=== PATIENT | female | born 2000 | race Asian ===

== ENCOUNTER 2019-01-11 11:26 | Emergency (ER) | payer OTHER, SELFPAY ==
[2019-01-11 11:45] VITALS: BP 123/74; PULSE 80; RESP 12; TEMP 37.3; O2SAT 98
--- NOTE | 2019-01-11 11:46 | ED.ALLEREA ---
HPI - Allergic Reaction General Chief complaint: Allergic Reaction Stated complaint: Severe allergic reaction Time Seen by Provider: 01/11/19 11:39 Source: patient Mode of arrival: ambulatory Limitations: no limitations History of Present Illness HPI narrative: Patient is a 18-year-old female who presents with rash. She states that she ate seafood which she typically does 3 days ago. She has been taking Benadryl, however last night she started having some shortness of breath. She denies any tongue swelling or lip swelling. She is able swallow her own secretions. She is quite itchy. No other symptoms. MD complaint: hives Onset (ago): day(s) (3) Symptoms: rash and itching Severity: mild Treatment prior to arrival: benadryl Related Data Previous Rx's Medication Instructions Recorded prednisone 40 mg PO DAILY #10 tab 01/11/19 Review of Systems Review of Systems GENERAL: Denies chills, fatigue, malaise, fever, sweats, travel HEENT: Denies sinus pain, ear pain, sore throat, difficulty swallowing, neck pain RESPIRATORY: Denies dyspnea, cough, wheezing, hemoptysis, sputum. CARDIOVASCULAR: Denies chest pain, palpitations, orthopnea, edema GASTROINTESTINAL: Denies nausea, vomiting, abdominal pain, diarrhea, constipation, melena. : Denies dysuria, frequency, incontinence, hematuria, urinary retention, flank pain. MUSCULOSKELETAL: Denies weakness, joint pain, or bony pain SKIN: Hives NEUROLOGIC: Denies weakness, dizziness, headache, numbness, change in speech, confusion PSYCHIATRIC: No concerning psychosocial issues. 12 point review of systems is negative except for those stated above and HPI [facility] Medical History Patient denies significant medical history (Acute) Social History Smoking Status: Never smoker Social History Smoking Status: Never smoker Exam Initial Vital Signs Initial Vital Signs: Vital Signs Temperature 99.2 F 01/11/19 11:45 Pulse Rate 80 01/11/19 11:45 Respiratory Rate 12 01/11/19 11:45 Blood Pressure 123/74 01/11/19 11:45 Pulse Oximetry 98 01/11/19 11:45 GENERAL: Well-appearing, well-nourished and in no acute distress. HEENT: Head atraumatic,EOMI, pupils reactive, face symmetric, moist mucous membranes. No tongue swelling or lip swelling no stridor CARDIOVASCULAR: Regular rate and rhythm without murmurs, rubs or gallops. RESPIRATORY: Breath sounds equal bilaterally, no wheezes rales or rhonchi. Speaks in full sentences ABDOMEN: Soft, nontender. Normoactive bowel sounds all 4 quadrants. No guarding or rebound. EXTREMITIES: Normal range of motion, no clubbing or edema. Neurovascularly intact NEUROLOGICAL: Alert and oriented x4.Normal gait and speech. SKIN: Diffuse hives all over body Course Vital Signs - 8 hr 01/11/19 11:45 Temperature 99.2 F Pulse Rate 80 Respiratory Rate 12 Blood Pressure 123/74 Pulse Oximetry 98 Discharge Plan Departure Patient Disposition: Home Clinical Impression: Urticaria Allergic reaction Qualifiers: Encounter type: initial encounter Qualified Code(s): T78.40XA - Allergy, unspecified, initial encounter Discharge Date/Time: 01/11/19 12:03 Interventions: ED Discharge Assessment Last Done: 01/11/19 12:03 Instructions: DI for Hives Activity Restrictions/Additional Instructions: *You have been diagnosed with allergic reaction *What to do: At this time it is unclear what your allergic to. I do recommend allergy testing *Continue to take medications as directed Prednisone 40 mg once a day for 5 *Follow up with your primary care provider in 2-3 days *Return to ER if you should have difficulty breathing, lip swelling, tongue swelling or any new, worsening or concerning symptoms Prescriptions: New prednisone 20 mg tablet 40 mg PO DAILY Qty: 10 RF: 0
== END 2019-01-11 12:03 | disposition home or self-care (01) ==
LOC: ED 12:02
PROVIDERS: Emergency Provider Emergency Medicine
DX: L50.9 Urticaria, unspecified (principal); T78.40XA Allergy, unspecified, initial encounter
CPT/HCPCS: 99282; 99283

== ENCOUNTER 2019-03-17 12:39 | Emergency (ER) | payer OTHER, SELFPAY ==
[2019-03-17 12:40] VITALS: BP 130/78; PULSE 71; RESP 16; TEMP 36.6; O2SAT 100; BMI 24.2
--- NOTE | 2019-03-17 13:03 | DI.RAD.S_ITS ---
PROCEDURE: XR CHEST 2V INDICATIONS: near syncope, dyspnea TECHNIQUE: 2 views of the chest were acquired. COMPARISON: None. FINDINGS: Surgical changes and devices: None. Lungs and pleura: Lungs are clear. No pleural effusions or pneumothorax. Mediastinum: Mediastinal contours are normal. Heart size is normal. Bones and chest wall: No suspicious bony abnormalities. Soft tissues appear unremarkable. IMPRESSION: No acute pulmonary process. Dictated by: Lilliana Garcia M.D. on 03/17/2019 at 13:15 Approved by: Lilliana Garcia M.D. on 03/17/2019 at 13:15
[2019-03-17 13:11] LABS: Add Manual Diff / Slide Review NO; Basophils Absolute Auto 100 /uL (0-100); Basophils Percent Auto 0.6 % (0-2); Eosinophils Absolute Auto 0 /uL (0-450); Eosinophils Percent Auto 0.2 % (2-4); Hematocrit 42.5 % (36-46); Hemoglobin 14.8 g/dL (12.0-16.0); Lymphocytes Absolute Auto 2600 /uL (1100-4500); Lymphocytes Percent Auto 23.1 % (25-40); Mean Corpuscular HGB Conc 34.9 % (30-36); Mean Corpuscular Hemoglobin 30.4 PG (26-34); Mean Corpuscular Volume 87.2 fL (80-100); Monocytes Absolute Auto 600 /uL (0-900); Neutrophils Absolute Auto 8000 /uL (1500-7000); Neutrophils Percent Auto 71.1 % (50-75); Platelet Count 296 X10^3/uL (150-400); Red Blood Cell Count 4.87 X10^6/uL (4.0-5.2); Red Cell Distribution Width 12.9 % (11.6-14.8); White Blood Cell Count 11.2 X10^3/uL (4.5-11.0)
[2019-03-17 13:16] VITALS: BP 104/74; PULSE 58; RESP 11; O2SAT 100
[2019-03-17 13:25] LABS: Alanine Aminotransferase 52 IU/L (9-52); Albumin Globulin Ratio 1.5 (1.0-2.8); Alkaline Phosphatase 59 U/L (38-126); Aspartate Aminotransferase 59 IU/L (14-36); Bilirubin Total 0.3 mg/dL (0.2-1.3); Blood Urea Nitrogen 12 mg/dL (7-17); Calcium 10.2 mg/dL (8.4-10.2); Carbon Dioxide 25 mmol/L (22-32); Chloride 103 mmol/L (98-107); Creatine Kinase 164 U/L (30-135); Estimated Glomerular Filt Rate > 60.0 mL/min (>60); Globulin 3.3 g/dL (1.7-4.1); Glucose 83 mg/dL (70-100); HEMOLYSIS 34 (0-50); Potassium 3.8 mmol/L (3.4-5.1); Sodium 141 mmol/L (137-145); Total Protein 8.3 g/dL (6.3-8.2)
[2019-03-17] MEDS: ONDANSETRON 4 MG/2 ML INJ IV (13:26)
[2019-03-17] MEDS: SODIUM CHLORIDE 0.9% 1,000 ML 1000 ML IV (13:26)
[2019-03-17 13:30] VITALS: BP 121/71; PULSE 63; RESP 17; O2SAT 100
[2019-03-17 13:37] LABS: Troponin I < 0.012 ng/mL (0.01-0.034)
[2019-03-17 13:40] LABS: CKMB % Relative Index 0.5 % (1.5-5.0); Creatine Kinase MB 0.84 ng/mL (<2.37)
[2019-03-17 13:49] VITALS: BP 117/63; PULSE 70; RESP 14; O2SAT 98
[2019-03-17 14:00] VITALS: BP 117/71; PULSE 65; RESP 15; O2SAT 100
[2019-03-17 14:14] LABS: D Dimer < 230 ng/mL (<230)
--- NOTE | 2019-03-17 14:55 | ED.SYNCOPE ---
HPI - Syncope <Dagoberto KinneyMarysolWILLIAN RomanP - Last Filed: 03/17/19 22:15> General Chief Complaint: Syncope Stated Complaint: Syncope Time Seen by Provider: 03/17/19 12:40 Source: EMS Mode of arrival: EMS Limitations: no limitations History of Present Illness HPI narrative: This is 18-year-old female, current vapor, presents to ED with medics with chief complain of near syncopal episode while she was smoking on a smoke deck. Patient reports she was having right-sided abdominal pain and lightheadedness with dyspnea prior to this. Patient denies chest pain. Patient is currently being treated for PID with Flagyl and doxycycline secondary to Chlamydia infection. Patient reports right lower quadrant pain is worse today. Denies fever, nausea or vomiting, urinary symptoms, vaginal bleeding, unusual vaginal discharge. Patient reports chills. Patient denies any history of syncopal episode or cardiac problems the past. LMP on 03/04/19. Related Data Home Medications Medication Instructions Recorded Confirmed doxycycline hyclate 100 mg PO BID 03/17/19 03/17/19 ibuprofen 800 mg PO TID 03/17/19 03/17/19 metronidazole 500 mg PO TID 03/17/19 03/17/19 Allergies Allergy/AdvReac Type Severity Reaction Status Date / Time No Known Drug Allergies Allergy Verified 03/17/19 12:43 Review of Systems <Dagoberto KinneyMarysolWILLIAN [facility] Last Filed: 03/17/19 22:15> Review of Systems Narrative: General: Reports chills. Denies fever, fatigue, malaise, sweats. HEENT: Denies sinus pain, ear pain, sore throat, difficulty swallowing, dizziness. Respiratory: See HPI Cardiovascular: Denies chest pain, palpitations, orthopnea, edema. Gastrointestinal: Reports right lower quadrant pain. Denies nausea, vomiting, diarrhea, constipation, melena. : Denies dysuria, frequency, incontinence, hematuria, urinary retention. Musculoskeletal: Denies weakness, joint pain or bony pain. Skin: Denies rash, skin lesions, or other. Neurologic: Almost fainted this morning. Denies weakness, headache, numbness, change in speech, confusion, seizures, incoordination. Psychiatric: No concerning psychosocial issues. 12-point review of systems is negative except for those stated above. Patient History <Dagoberto JAIME Najrea - Last Filed: 03/17/19 22:15> Medical History (Updated 03/17/19 @ 22:00 by JAIME Guo) Chlamydia infection (Acute) Social History Smoking Status: Current every day smoker tobacco type: vaping Substance Use Type: does not use Exam <JAIME Guo - Last Filed: 03/17/19 22:15> Narrative Exam Narrative: GEN: Alert, oriented x 3, well appearing and nourished, and in no acute distress. Head: Normal cephalic, atraumatic. No scalp or temporal tenderness, palpable mass or rash. EYES: Pupils are equal, round, and reactive to light and accommodation. Extraocular muscles are intact bilaterally. There is no subconjunctival hemorrhage, exudate and sclera non-icteric. ENT: Bilateral auditory canals and tympanic membranes clear. Hearing grossly intact. Nose without bleeding, purulent discharge or deviation. Facial sinuses nontender to palpate. Mucous membrane moist, no mucosal lesion. Throat without erythema, tonsillar hypertrophy or exudate. Uvula in midline, airway patent. Neck: Trachea in midline. No JVD, non-tender without lymphadenopathy. No masses or thyroid megaly. Supple, non-tender and no meningeal signs. CARDIAC: Normal regular rate and rhythm without murmurs, gallops, or rubs. No chest wall tenderness. No peripheral edema, cyanosis or pallor. Capillary refill is less than 2 seconds. RESPIRATORY: Lungs are clear to auscultate bilaterally. No cough, wheezes, rales, or rhonchi. No stridor, respiratory distress, increase work of breathing, or accessary muscle used. ABD: Abdomen soft, nontender and non-distended. No guarding or rebound tenderness to palpate. Bowel sounds are normal in all 4 quadrants. There is no palpable masses or organomegaly. EXT: Full painless ROM of all extremities with no loss of sensation, strength, effusion or edema. SKIN: Warm, dry, normal color for patient. No erythema, lesions or rash over visible areas. BACK: Nontender without deformity or crepitance. No flank tenderness. NEUROLOGICAL: Alert and oriented to place, time and person. Sensation and motor function intact bilaterally. No facial droops, dysphasia. PSYCHIATRIC: Good judgement and reason, without hallucinations, abnormal affect or abnormal behaviors during the examination. Initial Vital Signs Initial Vital Signs: Vital Signs Temperature 97.8 F 03/17/19 12:40 Pulse Rate 71 03/17/19 12:40 Respiratory Rate 16 03/17/19 12:40 Blood Pressure 130/78 03/17/19 12:40 Pulse Oximetry 100 03/17/19 12:40 <Thomas Abrams DO - Last Filed: 03/18/19 07:05> Initial Vital Signs Initial Vital Signs: Vital Signs Temperature 97.8 F 03/17/19 12:40 Pulse Rate 71 03/17/19 12:40 Respiratory Rate 16 03/17/19 12:40 Blood Pressure 130/78 03/17/19 12:40 Pulse Oximetry 100 03/17/19 12:40 Scores <JAIME Guo - Last Filed: 03/17/19 22:15> GCS [place] coma scale eye opening: Spontaneous [place] coma scale verbal response: Orientated [place] coma scale motor response: Obey commands [place] coma scale total score: 15 Course <JAIME Guo - Last Filed: 03/17/19 22:15> Orders Ordered: Discontinued Medications Sodium Chloride (Normal Saline 0.9%) 1,000 mls @ 1,000 mls/hr IV BOLUS ONE Stop: 03/17/19 14:02 Last Infusion: 03/17/19 14:46 Dose: 0 mls/hr Documented by: Admin: 03/17/19 13:26 Dose: 1,000 mls/hr Documented by: ROSHNI Ondansetron HCl (Zofran) 4 mg IV NOW ONE Stop: 03/17/19 13:23 Last Admin: 03/17/19 13:26 Dose: 4 mg Documented by: ROSHNI Reevaluation(s) Reevaluation #1: Improved pain, Denies dizziness with ambulation. Time: 14:15 Vital Signs Vital signs: Vital Signs - 8 hr 03/17/19 14:00 03/17/19 15:03 Pulse Rate 65 64 Respiratory Rate 15 18 Blood Pressure [Left Arm] 117/71 122/70 Pulse Oximetry 100 98 <Thomas Abrams DO - Last Filed: 03/18/19 07:05> Orders Ordered: Discontinued Medications Sodium Chloride (Normal Saline 0.9%) 1,000 mls @ 1,000 mls/hr IV BOLUS ONE Stop: 03/17/19 14:02 Last Infusion: 03/17/19 14:46 Dose: 0 mls/hr Documented by: Admin: 03/17/19 13:26 Dose: 1,000 mls/hr Documented by: ROSHNI Ondansetron HCl (Zofran) 4 mg IV NOW ONE Stop: 03/17/19 13:23 Last Admin: 03/17/19 13:26 Dose: 4 mg Documented by: ROSHNI Vital Signs Vital signs: Vital Signs - 8 hr 03/17/19 14:00 03/17/19 15:03 Pulse Rate 65 64 Respiratory Rate 15 18 Blood Pressure [Left Arm] 117/71 122/70 Pulse Oximetry 100 98 MDM - Syncope <JAIME Guo - Last Filed: 03/17/19 22:15> Differential Diagnosis Differential diagnosis: Likely syncope due to orthostatic hypotension, vasovagal syncope, pulmonary embolism and dehydration Medical Records Attestation: I reviewed the patient's medical records. Lab Data Attestation: I reviewed the patient's lab results. Result diagrams: 03/17/19 13:05 03/17/19 13:05 Labs: Lab Results 03/17/19 03/17/19 03/17/19 Range/Units 13:05 13:05 13:44 WBC 11.2 H (4.5-11.0) X10^3/uL RBC 4.87 (4.0-5.2) X10^6/uL Hgb 14.8 (12.0-16.0) g/dL Hct 42.5 (36-46) % MCV 87.2 (80-100) fL MCH 30.4 (26-34) PG MCHC 34.9 (30-36) % RDW 12.9 (11.6-14.8) % Plt Count 296 (150-400) X10^3/uL Neut % (Auto) 71.1 (50-75) % Lymph % (Auto) 23.1 L (25-40) % [place] % (Auto) 5.0 (3-14) % Eos % (Auto) 0.2 L (2-4) % Baso % (Auto) 0.6 (0-2) % Neut # (Auto) 8000 H (2874-3882) /uL Lymph # (Auto) 2600 (0940-5457) /uL [place] # (Auto) 600 (0-900) /uL Eos # (Auto) 0 (0-450) /uL Baso # (Auto) 100 (0-100) /uL D-Dimer < 230 (<230) ng/mL Sodium 141 (137-145) mmol/L Potassium 3.8 (3.4-5.1) mmol/L Chloride 103 (98-107) mmol/L Carbon Dioxide 25 (22-32) mmol/L BUN 12 (7-17) mg/dL Creatinine 0.60 (0.52-1.04) mg/dL Estimated GFR > 60.0 (>60) mL/min BUN/Creatinine Ratio 20.0 (6-22) Glucose 83 (70-100) mg/dL Calcium 10.2 (8.4-10.2) mg/dL Total Bilirubin 0.3 (0.2-1.3) mg/dL AST 59 H (14-36) IU/L ALT 52 (9-52) IU/L Alkaline Phosphatase 59 (38-126) U/L Total Creatine Kinase 164 H (30-135) U/L CK-MB (CK-2) 0.84 (<2.37) ng/mL CK-MB (CK-2) Rel Index 0.5 L (1.5-5.0) % Troponin I < 0.012 (0.01-0.034) ng/mL Total Protein 8.3 H (6.3-8.2) g/dL Albumin 5.0 (3.5-5.0) g/dL Globulin 3.3 (1.7-4.1) g/dL Albumin/Globulin Ratio 1.5 (1.0-2.8) Point of Care Testing Test Results Negative Urine Dip Bedside Urine Glucose Negative Bedside Urine Bilirubin - Negative Bedside Urine Ketone - Negative Urine Specific [place] 1.010 Bedside Urine Occult Blood - Negative Bedside Urine pH 6.0 Bedside Urine Protein - Negative Bedside Urine Urobilinogen - Negative Bedside Urine Nitrite - Negative Bedside Urine Leukocytes - Negative Esterase Imaging Data Chest x-ray: Radiologist's impression: [address] [place] [address] XRay Report Signed Patient: Ibis Parmar EMR#: [id number] : 2000Acct:[id number] Age/Sex: 18 / FDate of Service: 03/17/19 Loc: ED Accession Number: [id number] Procedure: XR chest 2V Ordering Provider: Dagoberto Najera PROCEDURE: XR CHEST 2V INDICATIONS: near syncope, dyspnea TECHNIQUE: 2 views of the chest were acquired. COMPARISON: None. FINDINGS: Surgical changes and devices: None. Lungs and pleura: Lungs are clear. No pleural effusions or pneumothorax. Mediastinum: Mediastinal contours are normal. Heart size is normal. Bones and chest wall: No suspicious bony abnormalities. Soft tissues appear unremarkable. IMPRESSION: No acute pulmonary process. Dictated by: Lilliana Garcia M.D. on 03/17/2019 at 13:15 Approved by: Lilliana Garcia M.D. on 03/17/2019 at 13:15 ECG Data Attestation: I personally reviewed and interpreted this ECG as follows: Prior ECG tracings: not available for review Interpretation: Sinus bradycardia with sinus arrhythmia rate of 56. Normal [place] For no ST elevation or depression. 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 Patient is currently treated for potential early PID with Flagyl and doxycycline after diagnosed with chlamydia. Patient was [facility] times these symptoms and had pelvic ultrasound and CT abdomen pelvis test done and both tests were negative for acute findings about a week ago. Patient's EKG was normal. Chest x-ray showed no acute findings. Stable H&H, unremarkable WBC. Normal blood glucose. Total CK was mildly elevated as 164 with negative troponin and D-dimer. Given patient has a history of discomfort prior to near syncopal episode patient was treated for vasovagal symptoms. Patient was treated with IV fluids, toward our and Zofran. Patient reports feeling better without dizziness and ambulated in stable gait to the bathroom and back without difficulty. Patient advised to continue with current antibiotic medication treatment and take [id number] Tylenol and/or Motrin for discomfort. Return precautions were discussed with the patient and advised to hydrate well. Patient verbalized understanding and agrees with the treatment plan. Patient is being released to her supervisor [employer]. <Thomas Abrams, - Last Filed: 03/18/19 07:05> Lab Data Labs: Lab Results 03/17/19 03/17/19 03/17/19 Range/Units 13:05 13:05 13:44 WBC 11.2 H (4.5-11.0) X10^3/uL RBC 4.87 (4.0-5.2) X10^6/uL Hgb 14.8 (12.0-16.0) g/dL Hct 42.5 (36-46) % MCV 87.2 (80-100) fL MCH 30.4 (26-34) PG MCHC 34.9 (30-36) % RDW 12.9 (11.6-14.8) % Plt Count 296 (150-400) X10^3/uL Neut % (Auto) 71.1 (50-75) % Lymph % (Auto) 23.1 L (25-40) % [place] % (Auto) 5.0 (3-14) % Eos % (Auto) 0.2 L (2-4) % Baso % (Auto) 0.6 (0-2) % Neut # (Auto) 8000 H (3551-5562) /uL Lymph # (Auto) 2600 (9810-7801) /uL [place] # (Auto) 600 (0-900) /uL Eos # (Auto) 0 (0-450) /uL Baso # (Auto) 100 (0-100) /uL D-Dimer < 230 (<230) ng/mL Sodium 141 (137-145) mmol/L Potassium 3.8 (3.4-5.1) mmol/L Chloride 103 (98-107) mmol/L Carbon Dioxide 25 (22-32) mmol/L BUN 12 (7-17) mg/dL Creatinine 0.60 (0.52-1.04) mg/dL Estimated GFR > 60.0 (>60) mL/min BUN/Creatinine Ratio 20.0 (6-22) Glucose 83 (70-100) mg/dL Calcium 10.2 (8.4-10.2) mg/dL Total Bilirubin 0.3 (0.2-1.3) mg/dL AST 59 H (14-36) IU/L ALT 52 (9-52) IU/L Alkaline Phosphatase 59 (38-126) U/L Total Creatine Kinase 164 H (30-135) U/L CK-MB (CK-2) 0.84 (<2.37) ng/mL CK-MB (CK-2) Rel Index 0.5 L (1.5-5.0) % Troponin I < 0.012 (0.01-0.034) ng/mL Total Protein 8.3 H (6.3-8.2) g/dL Albumin 5.0 (3.5-5.0) g/dL Globulin 3.3 (1.7-4.1) g/dL Albumin/Globulin Ratio 1.5 (1.0-2.8) Point of Care Testing Test Results Negative Urine Dip Bedside Urine Glucose Negative Bedside Urine Bilirubin - Negative Bedside Urine Ketone - Negative Urine Specific [place] 1.010 Bedside Urine Occult Blood - Negative Bedside Urine pH 6.0 Bedside Urine Protein - Negative Bedside Urine Urobilinogen - Negative Bedside Urine Nitrite - Negative Bedside Urine Leukocytes - Negative Esterase Discharge Plan Departure Patient Disposition: Home Clinical Impression: Vasovagal near syncope Discharge Date/Time: 03/17/19 15:08 Instructions: DI for Syncope in Adults (Fainting) Activity Restrictions/Additional Instructions: You have been diagnosed with [pre syncopal episode likely due to abdominal pain. Your EKG, chest x-ray, lab tests were unremarkable including cardiac enzymes and D-dimer. Your symptoms improved when he arrived in ER and after the treatment.]. What to do: *Take your medications as directed. Please continue with you're antibiotic medications. Take [id number] ibuprofen up to 3 times a day with food and he can add Tylenol extra strength up to 4 times a day if you continue to have pain. *Follow up with your primary care provider in 2-3 days, call for an appointment. Let them know you were seen in the ED and that we asked you to be seen in follow up. *Return to ED if you have any new, worsening, or concerning symptoms, such as [chest pain, breathing difficulty, unable to tolerate fluids, passing out like symptoms or any acute concerns]. Prescriptions: No Action doxycycline hyclate 100 mg capsule 100 mg PO BID RF: 0 ibuprofen 800 mg tablet 800 mg PO TID RF: 0 metronidazole 500 mg tablet 500 mg PO TID RF: 0 Referrals: [facility] [Outside] Stand Alone Forms: Work Release Note <Thomas Abrams, DO - Last Filed: 03/18/19 07:05> Sign Out Provider Sign Out Attestation: Dr Abrams Co-Sign Statement: I was available for consultation during this patient's emergency department visit. This chart is signed by myself for administrative purposes only. I did not have direct contact with this patient during this visit. They were seen independently by the APC.
[2019-03-17 15:03] VITALS: BP 122/70; PULSE 64; RESP 18; O2SAT 98
== END 2019-03-17 15:08 | disposition home or self-care (01) ==
PROVIDERS: Emergency Provider Nurse Practitioner Family
DX: R55 Syncope and collapse (principal); R10.31 Right lower quadrant pain; R00.1 Bradycardia, unspecified; R79.89 Other specified abnormal findings of blood chemistry
CPT/HCPCS: 36415; 71046; 80053; 81003; 81025; 82550; 82553; 84484; 85025; 85379; 93005; 93010; 96361; 96374; 99284; 99285; J2405

== ENCOUNTER 2019-06-27 22:57 | Emergency (ER) | payer OTHER, SELFPAY ==
[2019-06-27 23:03] VITALS: BP 98/64; PULSE 74; RESP 15; TEMP 36.4; O2SAT 100; BMI 23.0
[2019-06-28 00:52] LABS: Bacteria Urine Many (>30); Culture Indicated Urine Specimen Cultured; RBC Urine 1-5/HPF (0-5/HPF); Squamous Epithelial Cell Urine 0-1 /HPF (0-5/HPF); WBC Urine 30-100/HPF (0-5/HPF)
[2019-06-28] MEDS: cephALEXin 250 MG PREPACK 1 BOTTLE MISC (02:45)
[2019-06-28 02:57] VITALS: BP 104/68; PULSE 70; RESP 14; O2SAT 99
[2019-06-28 04:18] LABS: Urine N gonorrhoeae NOT DETECTED
[2019-06-28 04:19] LABS: Urine Chlamydia NOT DETECTED
--- NOTE | 2019-06-28 04:26 | ED_ITS ---
HPI - Female Genitourinary General Chief complaint: Urogenital-Female Stated complaint: lower abdominal pain, pain with urination Time Seen by Provider: 06/28/19 02:11 Source: patient Mode of arrival: Family Vehicle Limitations: no limitations History of Present Illness HPI Narrative: 18F daily smoker presents with significant other and chief complaint of dysuria, frequency, and urgency for the past few days. She's had no fever, chills, N/V or back pain. She denies vaginal bleeding or discharge. She'd been recently treated for chlamydia Related Data Home Medications Medication Instructions Recorded Confirmed doxycycline hyclate 100 mg PO BID 03/17/19 03/17/19 ibuprofen 800 mg PO TID 03/17/19 03/17/19 metronidazole 500 mg PO TID 03/17/19 03/17/19 Previous Rx's Medication Instructions Recorded cephalexin [Keflex] 500 mg PO QID 7 Days #28 cap 06/28/19 Allergies Allergy/AdvReac Type Severity Reaction Status Date / Time No Known Drug Allergies Allergy Verified 03/17/19 12:43 Review of Systems Constitutional Constitutional: Denies chills, Denies fatigue, Denies fever(s), Denies frequent falls, Denies lethargy and Denies weakness Eyes Eyes: Denies change in vision, Denies eye discharge, Denies irritation and Denies loss of vision ENT Ears, Nose, Mouth, and Throat: Denies change in voice, Denies dizziness, Denies neck pain, Denies sore throat and Denies throat swelling Cardiovascular Cardiovascular: Denies chest pain, Denies irregular heart rhythm, Denies lightheadedness, Denies palpitations, Denies dyspnea, Denies dyspnea on exertion and Denies orthopnea Respiratory Respiratory: Denies cough, Denies dyspnea, Denies dyspnea on exertion and Denies wheezing Gastrointestinal Gastrointestinal: Denies abdominal pain, Denies change in bowel habits, Denies diarrhea, Denies nausea and Denies vomiting Genitourinary Genitourinary: Denies hematuria, Reports dysuria, Denies flank pain, Denies urinary incontinence and Reports urinary urgency Musculoskeletal Musculoskeletal: Denies back pain, Denies muscle weakness, Denies neck pain, Denies numbness and Denies tingling Integumentary/Breasts Skin/Breast: Denies pruritus, Denies erythema, Denies rash and Denies wounds Neurologic Neurologic: Denies behavioral changes, Denies confusion, Denies dizziness, Denies frequent falls, Denies loss of vision, Denies numbness, Denies tingling and Denies weakness Psychiatric Psychiatric: Denies anxiety, Denies behavioral changes, Denies confusion, Denies depression, Denies homicidal ideation and Denies suicidal ideation Endocrine Endocrine: Denies fatigue, Denies flushing and Denies palpitations Hematologic/Lymphatic Hematologic/Lymphatic: Denies easy bruising Allergic/Immunologic Allergic/Immunologic: Denies urticaria, Denies throat swelling and Denies whee zing Patient History Medical History Chlamydia infection (Acute) tobacco type: vaping Substance Use Type: does not use Exam Narrative Exam Narrative: GEN: AOx3 and in mild distress EYES: Pupils are equal, round, and reactive to light and accommodation. Extraoccular muscles are intact bilaterally. There is no subconjunctival hemorrhage or exudate. CHEST: Lungs are clear to auscultation bilaterally and free of wheezes, rales, or rhonchi. Heart rate is regular rhythm, there are no murmurs, clicks, rubs, or gallops. There is no chest wall tenderness. ABD: Abdomen is soft and nontender. There is no guarding or rebound. Bowel sounds are normal in all 4 quadrants. There is no mass or organomegaly. EXT: Full painless ROM of all extremities with no loss of sensation or strength. SKIN: Warm, pink, and dry. No erythema or rash Initial Vital Signs Initial Vital Signs: Vital Signs Temperature 97.6 F 06/27/19 23:03 Pulse Rate 74 06/27/19 23:03 Respiratory Rate 15 06/27/19 23:03 Blood Pressure 98/64 06/27/19 23:03 Pulse Oximetry 100 06/27/19 23:03 Course Orders Ordered: ED Orders 06/28/19 00:10 Chlamydia Gonorrhea PCR -URINE Stat Urine Culture Stat Urine Microscopic Stat Discontinued Medications Cefazolin Sodium (Keflex 250 Mg Prepack) 1 bottle MISC SEEINSTR ONE Stop: 06/28/19 02:35 Last Admin: 06/28/19 02:45 Dose: 500 mg Documented by: KARENA Vital Signs Vital signs: Vital Signs - 8 hr 06/27/19 23:03 06/28/19 02:57 Temperature 97.6 F Pulse Rate 74 70 Respiratory Rate 15 14 Blood Pressure 98/64 104/68 Pulse Oximetry 100 99 MDM - Female Genitourinary Lab Data Labs: Lab Results 06/28/19 06/28/19 Range/Units 00:10 00:10 Urine RBC 1-5/hpf (0-5/HPF) Urine WBC 30-100/hpf H (0-5/HPF) Ur Squamous Epith Cells 0-1 /hpf (0-5/HPF) Urine Bacteria Many (>30) H (None) Ur Culture Indicated? Specimen cultured Ur Chlamydia DNA (PCR) Not detected N gonorrhoeae DNA (PCR) Not detected Point of Care Testing Test Results Negative Urine Dip Bedside Urine Glucose Negative Bedside Urine Bilirubin - Negative Bedside Urine Ketone +/- 5 Urine Specific [place] 1.020 Bedside Urine Occult Blood + Bedside Urine pH 6.0 Bedside Urine Protein +/- 15 Bedside Urine Urobilinogen - Negative Bedside Urine Nitrite - Negative Bedside Urine Leukocytes +++ 500 Esterase Discharge Plan Departure Patient Disposition: Home Clinical Impression: Urinary tract infection Qualifiers: Urinary tract infection type: acute cystitis Hematuria presence: without hematuria Qualified Code(s): N30.00 - Acute cystitis without hematuria Discharge Date/Time: 06/28/19 03:02 Instructions: DI for Urinary Tract Infection (UTI) Activity Restrictions/Additional Instructions: *You have been diagnosed with [urinary tract infection] *What to do: *Take medications as directed: your antibiotics have been electronically transmitted to [facility] in [place] at your request *Follow up with your primary care provider in 2-3 days, call for an appointment. Let them know you were seen in the Emergency Department and that we ask that you be seen in follow up *Return to ER if you should have any new, worsening or concerning symptoms Prescriptions: New cephalexin [Keflex] 500 mg capsule 500 mg PO QID 7 Days Qty: 28 RF: 0 No Action doxycycline hyclate 100 mg capsule 100 mg PO BID RF: 0 ibuprofen 800 mg tablet 800 mg PO TID RF: 0 metronidazole 500 mg tablet 500 mg PO TID RF: 0 Referrals: Martina Tran DO [Physician] -
== END 2019-06-28 03:02 | disposition home or self-care (01) ==
PROVIDERS: Emergency Medicine; Emergency Provider Emergency Medicine
DX: N30.00 Acute cystitis without hematuria (principal)
CPT/HCPCS: 81003; 81015; 81025; 87077; 87086; 87186; 87491; 87591; 99282; 99283

== ENCOUNTER 2022-04-01 00:25 | Observation (INO) | payer OTHER, SELFPAY ==
[2022-04-01] VITALS (18 sets, daily range): BP systolic 97–117; BP diastolic 49–74; PULSE 59–87; RESP 11–25; TEMP 35.7–36.8; O2SAT 96–100; BMI 25.0; BMI 24.7
--- NOTE | 2022-04-01 | PATH_ITS ---
[facility] Accession Number: [id number] . 01 Material submitted: . gallbladder - GALLBLADDER . 01 Diagnosis: Gallbladder, Cholecystectomy: Cholelithiasis with mild chronic cholecystitis and cholesterolosis. Attached portion of liver with no significant inflammation, steatosis or fibrosis. No evidence of neoplasm. MRV 04/05/2022 1310 Local . 01 Electronically signed: . Ariel Anguiano MD, PhD, Pathologist NPI- [id number] . 01 Gross description: . The specimen is received in formalin labeled with the patient's name, , and gallbladder, and consists of an intact gallbladder measuring 7.5 x 2.3 x 1.7 cm. The serosa is green-bourgeois and smooth, and significant for a red-brown smooth loosely attached nodule measuring 1.4 x 0.7 x 0.4 cm. A roughened area on this nodule is consistent with margin and is inked black. The cystic duct is received closed with a clamp, is inked blue, and no pericystic lymph node is identified. Opening the specimen reveals the lumen to contain dark green mucoid bile and several yellow bosselated calculi measuring up to 0.9 cm in greatest dimension. The mucosa is green and velvety with an area of pinpoint yellow discoloration located in the fundus consistent with cholesterol deposits. No polyps or lesions are identified. The awan average 0.3 cm thick. Oncology Technician sections are submitted as follows: . A1: Gallbladder, cystic duct margin, and full-thickness sections. A2: Entire bisected brown smooth nodule. ([id number]) /MRV 04/04/2022 1811 Local . 01 Pathologist provided ICD-10: K80.60, K81.1 . 01 CPT . 877802 Specimen Comment: A courtesy copy of this report has been sent to [facility] Pathology Performed at: 01 [facility] Cytology [facility] [address] [facility], [place], [place] [id number] MD Juan Daley MD Phone: [phone]
[2022-04-01 01:00] LABS: Add Manual Diff / Slide Review NO; Basophils Absolute Auto 100 /uL (0-100); Basophils Percent Auto 1.1 % (0-2); Eosinophils Absolute Auto 100 /uL (0-450); Eosinophils Percent Auto 1.2 % (2-4); Hematocrit 38.6 % (36-46); Lymphocytes Absolute Auto 2600 /uL (1100-4500); Lymphocytes Percent Auto 34.2 % (25-40); Mean Corpuscular HGB Conc 33.8 % (30-36); Mean Corpuscular Volume 85.8 fL (80-100); Monocytes Absolute Auto 500 /uL (0-900); Monocytes Percent Auto 6.2 % (3-14); Neutrophils Absolute Auto 4300 /uL (1500-7000); Neutrophils Percent Auto 57.3 % (50-75); Platelet Count 262 X10^3/uL (150-400); Red Blood Cell Count 4.49 X10^6/uL (4.0-5.2); Red Cell Distribution Width 13.4 % (11.6-14.8); White Blood Cell Count 7.5 X10^3/uL (4.5-11.0)
[2022-04-01 01:08] LABS: Alanine Aminotransferase 35 IU/L (<35); Albumin 4.4 g/dL (3.5-5.0); Albumin Globulin Ratio 1.5 (1.0-2.8); Alkaline Phosphatase 57 U/L (38-126); Aspartate Aminotransferase 83 IU/L (14-36); BUN Creatinine Ratio 37.9 (6-22); Bilirubin Total 0.3 mg/dL (0.2-1.3); Blood Urea Nitrogen 25 mg/dL (7-17); Calcium 9.2 mg/dL (8.4-10.2); Carbon Dioxide 27 mmol/L (22-32); Chloride 103 mmol/L (98-107); Estimated Glomerular Filt Rate > 60 mL/min (>60); Glucose 95 mg/dL (70-100); HEMOLYSIS < 15 (0-50); Lipase 71 U/L (23-300); Potassium 3.6 mmol/L (3.4-5.1); Sodium 137 mmol/L (137-145); Total Protein 7.4 g/dL (6.3-8.2)
--- NOTE | 2022-04-01 01:55 | DI.US.S_ITS ---
PROCEDURE: US ABDOMEN LIMITED INDICATIONS: RUQ PAIN TECHNIQUE: Real-time focused scanning was performed of the abdomen, with image documentation. COMPARISON: None. FINDINGS: The liver is normal in size and demonstrates no focal lesions. 3 mobile gallstones are seen. A non mobile gallstones also seen at the gallbladder neck measuring 1 cm. The gallbladder wall is not thickened, measuring 3 mm or less. No specific pericholecystic fluid is seen. The sonographic Rascon sign is negative. There is no biliary dilatation, the common bile duct measures 5 mm. No significant pancreatic abnormality is seen on these images. IMPRESSION: Gallstones are seen, yet without additional sonographic signs of cholecystitis. Negative for biliary dilatation. Please correlate with physical examination findings, patient presentation, and laboratory values. Note: No significant discrepancy from the preliminary report. Dictated by: Jose Rahman M.D. on 04/01/2022 at 7:05 Approved by: Jose Rahman M.D. on 04/01/2022 at 7:07
--- NOTE | 2022-04-01 01:56 | ED.ABDPAIN ---
HPI - Abdominal Pain General Chief Complaint: Abdominal Pain Stated Complaint: abd. pain Time Seen by Provider: 04/01/22 01:51 History of Present Illness HPI narrative: Patient here with a friend. Complains of worsening right upper quadrant pain for the past 1 month. Worse tonight. Has been seen by emergency department twice in the past month and had 2 ultrasounds. Has known gallstones. However tonight pain worse than any previous episodes or visits. Patient has not been able to establish surgical referral from her primary care yet. Denies any medical problems. No previous surgical history. Related Data Home Medications Medication Instructions Recorded Confirmed doxycycline hyclate 100 mg capsule 100 mg PO BID 03/17/19 03/17/19 ibuprofen 800 mg tablet 800 mg PO TID 03/17/19 03/17/19 metronidazole 500 mg tablet 500 mg PO TID 03/17/19 03/17/19 Allergies Allergy/AdvReac Type Severity Reaction Status Date / Time No Known Drug Allergies Allergy Verified 03/17/19 12:43 Review of Systems Review of Systems Narrative: GENERAL: Denies chills, fatigue, malaise, fever, sweats. HEENT: Denies sinus pain, ear pain, sore throat RESPIRATORY: Denies dyspnea, cough CARDIOVASCULAR: Denies chest pain, palpitations GASTROINTESTINAL: Positive nausea, negative vomiting, positive abdominal pain : Denies dysuria, frequency, hematuria MUSCULOSKELETAL: denies muscle or bony pain SKIN: Denies rash, skin lesions NEUROLOGIC: Denies weakness, numbness ROS Unobtainable: All systems reviewed & are unremarkable except as noted in HPI and below Patient History Medical History (Updated 04/01/22 @ 03:40 by Henri Green MD) Chlamydia infection Social History household members: spouse Smoking Status: Current every day smoker alcohol intake: former Smoking Status: Current every day smoker tobacco type: vaping Substance Use Type: does not use Exam Narrative Exam Narrative: GENERAL: in no distress, not toxic not dyspneic HEAD: Normocephalic. EYES: Pupils equal round No scleral icterus. ENT: Mucous membranes moist. NECK: Trachea midline. CARDIOVASCULAR: Regular rate and rhythm without murmurs RESPIRATORY: Clear to auscultation. Breath sounds equal bilaterally. No wheezes, rales, or rhonchi. GASTROINTESTINAL: Abdomen soft, reproducible right upper quadrant tenderness. Positive Rascon sign. No peritoneal signs. Bowel sounds are present. EXTREMITIES: No gross deformities. BACK: No flank tenderness. NEURO: AOx4. SKIN: Warm and dry PSYCH: Not anxious, is cooperative Initial Vital Signs Initial Vital Signs: Vital Signs Temperature 97.4 F L 04/01/22 00:34 Pulse Rate 73 04/01/22 00:34 Respiratory Rate 18 04/01/22 00:34 Blood Pressure 117/65 04/01/22 00:34 Pulse Oximetry 99 04/01/22 00:34 Oxygen Delivery Method 04/01/22 00:34 Course Course Course Narrative: No new issues during course of stay Decision to Admit Date: 04/01/22 Decision to Admit time: 01:58 Orders Ordered: ED Orders 04/01/22 00:50 Complete Blood Count AUTO DIFF Stat Comprehensive Metabolic Panel Stat Lipase Stat 04/01/22 01:55 US abdomen limited Stat 04/01/22 02:15 COVID19 -Nasal RAPID/Pre-Proc Stat Sodium Chloride (Normal Saline 0.9%) 1,000 mls @ 125 mls/hr IV CONT JAYLEN Last Admin: 04/01/22 03:32 Dose: 125 mls/hr Morphine Sulfate (Morphine 4 Mg/Ml Inj) 4 mg IV Q4HR JAYLEN Ondansetron HCl (Ondansetron 4 Mg/2 Ml Inj) 4 mg IV Q4HR PRN PRN Reason: Nausea And Vomiting Discontinued Medications Morphine Sulfate (Morphine 4 Mg/Ml Inj) 4 mg IV NOW ONE Stop: 04/01/22 01:56 Last Admin: 04/01/22 02:17 Dose: 4 mg Ondansetron HCl (Ondansetron 4 Mg/2 Ml Inj) 4 mg IV NOW ONE Stop: 04/01/22 01:56 Last Admin: 04/01/22 02:18 Dose: 4 mg Reevaluation(s) Reevaluation #1: Updated patient. Pain is much better. She does desire to be admitted and possible have surgery later this morning Time: 02:38 Consultations Consultation #1: Spoke with general surgery dr tierney, will admit patient and see patient later this morning, possible surgery add on to the schedule Time: 02:39 Vital Signs Vital signs: Vital Signs - 8 hr 04/01/22 00:34 Temperature 97.4 F L Pulse Rate 73 Respiratory Rate 18 Blood Pressure 117/65 Pulse Oximetry 99 Oxygen Delivery Method Room Air MDM - Abdominal Pain Differential Diagnosis Differential diagnosis: Likely abdominal pain, acute appendicitis, calculus of kidney, pancreatitis, small bowel obstruction and other (Cholecystitis/symptomatic cholelithiasis) Lab Data Result diagrams: 04/01/22 00:50 04/01/22 00:50 Labs: Lab Results 04/01/22 04/01/22 04/01/22 Range/Units 00:50 00:50 02:15 WBC 7.5 (4.5-11.0) X10^3/uL RBC 4.49 (4.0-5.2) X10^6/uL Hgb 13.0 (12.0-16.0) g/dL Hct 38.6 (36-46) % MCV 85.8 (80-100) fL MCH 29.0 (26-34) PG MCHC 33.8 (30-36) % RDW 13.4 (11.6-14.8) % Plt Count 262 (150-400) X10^3/uL Neut % (Auto) 57.3 (50-75) % Lymph % (Auto) 34.2 (25-40) % [place] % (Auto) 6.2 (3-14) % Eos % (Auto) 1.2 L (2-4) % Baso % (Auto) 1.1 (0-2) % Neut # (Auto) 4300 (3636-1873) /uL Lymph # (Auto) 2600 (9588-9546) /uL [place] # (Auto) 500 (0-900) /uL Eos # (Auto) 100 (0-450) /uL Baso # (Auto) 100 (0-100) /uL Sodium 137 (137-145) mmol/L Potassium 3.6 (3.4-5.1) mmol/L Chloride 103 (98-107) mmol/L Carbon Dioxide 27 (22-32) mmol/L BUN 25 H (7-17) mg/dL Creatinine 0.66 (0.52-1.04) mg/dL Estimated GFR > 60 (>60) mL/min BUN/Creatinine Ratio 37.9 H (6-22) Glucose 95 (70-100) mg/dL Calcium 9.2 (8.4-10.2) mg/dL Total Bilirubin 0.3 (0.2-1.3) mg/dL AST 83 H (14-36) IU/L ALT 35 H (<35) IU/L Alkaline Phosphatase 57 (38-126) U/L Total Protein 7.4 (6.3-8.2) g/dL Albumin 4.4 (3.5-5.0) g/dL Globulin 3.0 (1.7-4.1) g/dL Albumin/Globulin Ratio 1.5 (1.0-2.8) Lipase 71 (23-300) U/L SARS-CoV-2 (PCR) Negative (Negative) Point of care testing: Point of Care Testing Test Results Negative Urine Dip Bedside Urine Glucose Negative Bedside Urine Bilirubin - Negative Bedside Urine Ketone - Negative Urine Specific [place] 1.030 Bedside Urine Occult Blood + Bedside Urine pH 6.0 Bedside Urine Protein - Negative Bedside Urine Urobilinogen - Negative Bedside Urine Nitrite - Negative Bedside Urine Leukocytes - Negative Esterase Imaging Data US - abdomen: Radiologist's Impression: No acute findings. Positive for cholelithiasis MDM Narrative Medical decision making narrative: Appropriate for admission for pain control and possible surgery. Did review with patient and agrees for admission, spoke with General surgery and agrees to admit patient. Discharge Plan Departure Patient Disposition: Admitted as Observation Clinical Impression: Symptomatic cholelithiasis Admit Date/Time: 04/01/22 02:37 Admit Provider: Abi Tierney
[2022-04-01] MEDS: MORPHINE 4 MG/ML INJ IV ×2 (02:17→04:35)
[2022-04-01] MEDS: ONDANSETRON 4 MG/2 ML INJ IV ×4 (02:18→15:29)
[2022-04-01 02:32] LABS: COVID19 -Nasal RAPID Negative (Negative)
[2022-04-01] MEDS: SODIUM CHLORIDE 0.9% 1,000 ML 125 ML IV ×3 (03:32→15:39)
--- NOTE | 2022-04-01 04:43 | PC.NURSE ---
Pt is AxOx4, ind and cooperative. VSS, c/o RUQ 10/28 and recieved her scheduled IV Morphine with good effect. Pt is NPO and IV fluid is running 125ml/hr. No other changes.
--- NOTE | 2022-04-01 09:14 | P.HP_ITS ---
History of Present Illness History of Present Illness Chief complaint: abd. pain Narrative: Miss Parmar presented to the emergency room last night with severe right upper quadrant abdominal pain. She has never had pain this bad before. She endorses nausea but no emesis with it. Started last night of night around 10:00 p.m.. Last food she had eaten was benigno/eusebio bowel from [employer]. She had tried Pepto-Bismol tea and honey at home and nothing seemed to help with this severe pain. She has had similar pain though not as severe in the past going on for about the last month. Primary care provider is Dr. Hollingsworth at [facility] in [place]. He had done an ultrasound that identified gallstones and had made a referral for surgeon for symptomatic cholelithiasis; however she was not able to see this person yet and it seemed like it would be a long time in the future that she would be able to have this arranged. Today she is in severe pain in the emergency room and is admitted for pain control. She is seen with ultrasound to have a large gallstone blocking her cystic duct. She is having persistent pain this morning. I discussed with her gallbladder disease and laparoscopic cholecystectomy. She would like to proceed Patient History Medical History (Updated 04/01/22 @ 09:18 by Abi Tierney MD) Chlamydia infection Comment: She has a history of migraines for which she takes naproxen. She also takes vitamin. She has had no other surgical history besides wisdom teeth. She has no family history of bleeding blood clotting disorders or problems with anesthesia Social history she currently vapes nicotine does not smoke and does not use alcohol or other recreational drugs. She has an allergy with throat swelling to asparagus but no known drug aller gies. Family & Social History Social History: household members spouse Prior Living Arrangements Apartment/Condo Safety & Behavioral: Feels Safe in Current Yes Environment Been Physically Hurt or No Threatened By a Person Tobacco & Substance use: Smoking Status Current every day smoker alcohol intake former Substance Use Type does not use Meds Home Medications and Allergies Home Medications Medication Instructions Recorded Confirmed Type doxycycline hyclate 100 mg capsule 100 mg PO BID 03/17/19 03/17/19 History ibuprofen 800 mg tablet 800 mg PO Q6HR PRN Abdominal Pain 03/17/19 03/17/19 History metronidazole 500 mg tablet 500 mg PO TID 03/17/19 03/17/19 History Allergies Allergy/AdvReac Type Severity Reaction Status Date / Time No Known Drug Allergies Allergy Verified 03/17/19 12:43 Exam Vital Signs (past 8 hours): - 04/01/22 03:13 04/01/22 03:53 04/01/22 03:19 Temperature 98.2 F 96.3 F L Pulse Rate 84 69 Respiratory Rate 16 16 Blood Pressure 116/67 114/65 Pulse Oximetry 100 100 Oxygen Delivery Method Room Air Room Air Oxygen Flow Rate 04/01/22 08:00 Temperature 97.5 F L Pulse Rate 59 L Respiratory Rate 16 Blood Pressure 110/64 Pulse Oximetry 100 Oxygen Delivery Method Oxygen Flow Rate 0 Oxygen Delivery Method Room Air Oxygen Flow Rate 0 Const General: cooperative and healthy appearing Eyes General: appearance normal, both eyes and all related structures Neck Neck: normal visual inspection Resp Effort & Inspection: normal respiratory effort and able to speak in complete sentences Cardio Pulses: radial pulses present GI Palpation: soft and tender (RUQ) Extrem General: normal to inspection and full ROM Objective Labs Result Diagrams: 04/01/22 00:50 04/01/22 00:50 Labs: Laboratory Results - last 24 hr 04/01/22 04/01/22 04/01/22 00:50 00:50 02:15 WBC 7.5 RBC 4.49 Hgb 13.0 Hct 38.6 MCV 85.8 MCH 29.0 MCHC 33.8 RDW 13.4 Plt Count 262 Neut % (Auto) 57.3 Lymph % (Auto) 34.2 [place] % (Auto) 6.2 Eos % (Auto) 1.2 L Baso % (Auto) 1.1 Neut # (Auto) 4300 Lymph # (Auto) 2600 [place] # (Auto) 500 Eos # (Auto) 100 Baso # (Auto) 100 Sodium 137 Potassium 3.6 Chloride 103 Carbon Dioxide 27 BUN 25 H Creatinine 0.66 Estimated GFR > 60 BUN/Creatinine Ratio 37.9 H Glucose 95 Calcium 9.2 Total Bilirubin 0.3 AST 83 H ALT 35 H Alkaline Phosphatase 57 Total Protein 7.4 Albumin 4.4 Globulin 3.0 Albumin/Globulin Ratio 1.5 Lipase 71 SARS-CoV-2 (PCR) Negative Assessment & Plan Assessment and plan (1) Acute cholecystitis due to biliary calculus: Status: Acute Assessment & Plan narrative: There is an obstructing cystic duct stone and with persistent pain this justifies for me a diagnosis of acute cholecystitis. I have offered her laparoscopic cholecystectomy and she would like to proceed.-Tay risks benefits and alternatives including but not limited to bleeding infection injury to other organs around the gallbladder and common bile duct injury which would if severe require transfer to a tertiary care center. She understands the risks and would like to proceed. Time Spent With Patient Critical Care time: I spent a total of [] minutes of critical care time on this patient's care today; this time is exclusive of procedural time. Quality VTE Deep Vein Thrombosis/Pulmonary Embolism Present on Admission: No
--- NOTE | 2022-04-01 09:23 | CM.DANOTE ---
Initial Discharge Assessment Note: Case reviewed, met with spouse, patient went to surgery half hour ago. Introduced self and role.\ Payer: [employer] and self pay PCP: Ponce Tyson 21 year old female admitted at 02:37 am this morning with abdominal pain which has persisted over the past month. She was diagnosed with gallstones and is undergoing a lap vs open choley by Dr Tierney. Patient is employed and lives in [place] with spouse Bruce who works at the [employer]. Plan: When medically stable, return home to care of spouse who will provide transportation. ELIAS Discharge Planning/Care Management CM Discharge Assessment Start: 04/01/22 09:22 Freq: Status: Active Protocol: Document 04/01/22 09:22 (Rec: 04/01/22 09:23 [id number]) Discharge Planning Assessment Assigned Small Products I Assembler Fernanda Dietz RN/DCP Advance Directives? No History Provided By Family Member,Medical Record Prior Living Arrangements Apartment/Condo Household Members spouse Type of transporation used prior to Drives own vehicle admit Independent with ADL's Yes Is patient alert and oriented? Yes Caregiver for Another No Discharge Plan Home Referrals Initiated None needed Whiteboard Updated in Patient Room with Yes name and ext. # of Small Products I Assembler Review Status In Process Next Review Type Continued Stay Review
--- NOTE | 2022-04-01 09:35 | CM.DANOTE ---
Discharge Assessment Note: Case reviewed. Payer: [employer] and self pay PCP: Ponce Tyson 21 year old female patient was admitted early am today with abdominal pain. Patient will go to surgery at [address] Tierney, per nurse Mj. Per chart, patient works at [employer] and lives with spouse Bruce. Plan: Will await to meet with patient and spouse. ELIAS Discharge Planning/Care Management CM Discharge Assessment Start: 04/01/22 09:22 Freq: Status: Active Protocol: Document 04/01/22 09:22 (Rec: 04/01/22 09:23 [id number]) Discharge Planning Assessment Assigned Teletype Technician Fernanda Dietz RN/DCP Advance Directives? No History Provided By Medical Record Prior Living Arrangements Apartment/Condo Household Members spouse Type of transporation used prior to Drives own vehicle admit Independent with ADL's Yes Is patient alert and oriented? Yes Caregiver for Another No Discharge Plan Home Referrals Initiated None needed Whiteboard Updated in Patient Room with Yes name and ext. # of Teletype Technician Review Status In Process Next Review Type Continued Stay Review
[2022-04-01] MEDS: LACTATED RINGERS 1,000 ML 42 ML IV (11:42)
--- NOTE | 2022-04-01 12:19 | SUR.HOLD ---
Delay of surgery explained to patient. portable sawyer to a different patient momentarily. Patient voices no needs at this time.
[2022-04-01] MEDS: MORPHINE 10 MG/ML INJ 4 MG IV (12:47)
[2022-04-01] MEDS: CEFAZOLIN 2 GM/100 ML PREMIX 100 ML IV (13:08)
--- NOTE | 2022-04-01 13:26 | SUR.OPER ---
Supine on padded OR bed, head on pillow, safety belt at thigh, left arm padded and tucked at side. Right arm secured on padded arm board <90 degrees abduction. Legs uncrossed. Padded footboard in place. Tape over blanket to secure lower legs.
[2022-04-01] MEDS: BUPIVACAINE 0.5% W/ EPI (PF) 30 ML VIAL INJ (13:33)
--- NOTE | 2022-04-01 15:17 | P.OP_ITS ---
Procedure & Clinicians Procedure: Laparoscopic cholecystectomy Same procedure as scheduled: Yes Indications: Acute cholecystitis with obstruction of the cystic. Surgeon: Abi Tierney Click Yes if Unassisted: Yes Anesthesia Type: General Operative Notes Specimen(s): other (Gallbladder) Prosthetic devices, grafts, tissues, transplants, or devices: Patient was taken to the operating room placed supine in the operating room table bilateral SCDs were in place preoperative antibiotics were administered. Preoperative time-out was performed general endotracheal anesthesia was induced. The abdomen was prepped and draped in the usual sterile fashion. A local bupivacaine with epinephrine was infused above the umbilicus. The skin was incised with a 11 blade scalpel and carried down through the subcutaneous tissues Matthew retractors were used to grasp and elevate the anterior abdominal wall fascia. The fascia was then entered sharply under direct visualization using Metzenbaum scissors. The intra-abdominal location was confirmed with a finger sweep and has some trocar was placed into the defect. The 2 stay sutures of 0 Vicryl on a UR6 needle were placed prior to inserting the Nadya trocar. The camera was inserted into the abdomen and the abdomen was inspected. There was no sign of entry injury. There was some adhesions around the right upper quadrant in the gallbladder. The accessory subcostal 5 mm trocars x3 were placed under direct visualization after infusing lidocaine into the peritoneum and subcutaneous tissues. The omentum was swept down off the gallbladder. And it became apparent that there were adhesions to the duodenum onto the gallbladder. These were thin translucent attachments. Which were taken down with laparoscopic scissors. The bowel was carefully manipulated using a bowel grasper. Next the dome of the gallbladder was pulled cephalad and dissection of the critical view was commenced. The peritoneal layer around the gallbladder was opened up using electrocautery. Dissection with the Metzenbaum scissors was used to delineate a cystic duct as well as a cystic artery which was seen entering into the gallbladder. This artery was doubly clipped and ligated high on the gallbladder and the remainder of the dissection of the cystic duct was done. This structure was clearly delineated on entering into the gallbladder from multiple view points and the liver bed was visible through the triangle created by the gallbladder wall. The cystic duct was then clipped twice on the stay side and once on the specimen side and divided. The gallbladder was then relieved from the gallbladder fossa of the liver using electrocautery. During this process a small blood vessel either a posterior cystic branch or a small hepatic vessel was ligated and there was some bleeding at that time. An additional Clip was placed into the the liver bed and the bleeding stopped. I proceeded with the rest of the dissection of the gallbladder off the liver. And then reinspected this area for hemostasis. Using electrocautery I assured hemostasis of the entire liver bed and in particular examined this area, which remained hemostatic. The remainder of the operative site was irrigated and suctioned the hepatic gutter was suctioned. All the clips looked secure and the operative field was hemostatic. At this point I placed the Endo-Catch bag through the umbilical port site and placed the gallbladder into it. The gallbladder was then removed from the abdomen and the camera was used to watch the removal of the accessory trocars under direct visualization. The abdomen was then desufflated and the fascia closed with the previously placed stay s utures. The skin was closed with a running Monocryl and dressed with Steri- Strips. Ultimately the EBL was approximately 50 cc. There were no complications and the patient went in good condition to the postoperative care unit. Complications: none Post-operative Condition: stable Disposition: PACU
[2022-04-01] MEDS: fentaNYL 100 MCG/2 ML INJ IV (15:29)
[2022-04-01] MEDS: METOCLOPRAMIDE 10 MG/2 ML INJ IV (15:29)
[2022-04-01] MEDS: HYDROMORPHONE 2 MG INJ IV (15:30)
[2022-04-01] MEDS: IBUPROFEN 400 MG TABLET 800 MG PO (17:36)
[2022-04-02] MEDS: HYDROCODONE/ACET 5/325 TABLET 2 TAB PO (00:48)
[2022-04-02 01:59] VITALS: BP 108/60; PULSE 54; RESP 14; TEMP 36.4; O2SAT 100
[2022-04-02 04:57] VITALS: TEMP 36.3
[2022-04-02] MEDS: HYDROMORPHONE 0.5 MG INJ IV (04:57)
[2022-04-02 06:09] VITALS: TEMP 36.3
[2022-04-02] MEDS: IBUPROFEN 400 MG TABLET 800 MG PO ×2 (06:09→11:04)
[2022-04-02 07:41] VITALS: BP 100/50; PULSE 63; RESP 15; TEMP 36.6; O2SAT 99
[2022-04-02] MEDS: ONDANSETRON 4 MG ODT SL (11:04)
--- NOTE | 2022-04-02 11:30 | PC.NURSE ---
Day shift: Paperwork signed and all questions answered. Left unit via WC at approx 1140 by TRISTON Carty. Pt's friend is driving her home. Pain well controlled per MAR. Some nausea and is taking ODT Zofran. MD scripts sent to [facility] by . Pt has all personal belongings. Pt also has MD work note now.
--- NOTE | 2022-04-02 12:44 | PM.DS.1 ---
History of Present Illness History of Present Illness Chief complaint: abd. pain Narrative: Miss Parmar presented to the emergency room last night with severe right upper quadrant abdominal pain. She has never had pain this bad before. She endorses nausea but no emesis with it. Started last night of night around 10:00 p.m.. Last food she had eaten was benigno/eusebio bowel from [employer]. She had tried Pepto-Bismol tea and honey at home and nothing seemed to help with this severe pain. She has had similar pain though not as severe in the past going on for about the last month. Primary care provider is Dr. Hollingsworth at [facility] in [place]. He had done an ultrasound that identified gallstones and had made a referral for surgeon for symptomatic cholelithiasis; however she was not able to see this person yet and it seemed like it would be a long time in the future that she would be able to have this arranged. Today she is in severe pain in the emergency room and is admitted for pain control. She is seen with ultrasound to have a large gallstone blocking her cystic duct. She is having persistent pain this morning. I discussed with her gallbladder disease and laparoscopic cholecystectomy. She would like to proceed Discharge Providers Provider Date of admission: 04/01/22 02:37 Discharge Date: 04/02/22 Primary care physician: Ponce Tyson PA-C Discharge provider: Abi Tierney MD Exam Vital Signs (past 8 hours): - 04/02/22 04:57 04/02/22 06:09 04/02/22 07:41 Temperature 97.4 F L 97.4 F L 97.9 F Pulse Rate 63 Respiratory Rate 15 Blood Pressure 100/50 L Pulse Oximetry 99 Oxygen Flow Rate 0 Oxygen Delivery Method Nasal Cannula Oxygen Flow Rate 0 Narrative Exam Narrative: Patient is awake alert oriented appropriate in no acute distress. Wounds are dry and clean. Umbilical Steri-Strips as replaced as it has become dislodged. Objective Labs Result Diagrams: 04/01/22 00:50 04/01/22 00:50 [facility] Medical History (Updated 04/01/22 @ 09:18 by Abi Tierney MD) Chlamydia infection Social History household members: spouse Smoking Status: Current every day smoker alcohol intake: former Discharge Assessment & Plan Assessment and Plan Assessment: Doing well postop day 1 status post laparoscopic cholecystectomy Plan of Treatment: Discharge home today with the usual instructions for follow-up, prescription, activity restrictions. Discharge Plan Discharge Plan Patient Disposition: Home Discharge orders & Medications Prescriptions: New hydrocodone-acetaminophen 5-325 mg tablet 2 tab PO Q6H PRN (Reason: pain) Qty: 14 0RF Rx Instructions: take 1-2 tabs as needed every 6 hours. ibuprofen 800 mg tablet 800 mg PO Q6H Qty: 20 0RF docusate sodium [Colace] 100 mg capsule 100 mg PO BID Qty: 14 0RF Rx Instructions: take while taking [place] for pain to prevent constipation. if you become constipated, take Miralax or call [facility] for advice. ondansetron 4 mg tablet,disintegrating 4 mg PO Q6H PRN (Reason: nausea and vomiting) Qty: 30 0RF Continued doxycycline hyclate 100 mg capsule 100 mg PO BID Label Comments: TAKE 1 CAPSULE BY MOUTH TWICE DAILY metronidazole 500 mg tablet 500 mg PO TID Label Comments: TAKE 1 TABLET BY MOUTH THREE TIMES DAILY Discontinued ibuprofen 800 mg tablet 800 mg PO Q6HR PRN (Reason: Abdominal Pain) Follow up/Referrals: Ponce Tyson PA-C [Primary Care Provider] - Abi Tierney MD [Physician] - Diet/Activity/Treatments Diet: Regular Skin/Wound/Dressing Care Report to your healthcare provider any signs of infection, such as:: chills, fever, night sweats, increased pain, unusual drainage and unusual redness Visit Report/Discharge Packet Instructions: DI for Laparoscopy, Cholecystectomy -- Laparoscopic Surgery, [facility]: Wound Care Stand Alone Forms: Surgery Discharge Discharge Data Primary Care Provider: Ponce Tyson Attending Provider: Abi Tierney Quality VTE Deep Vein Thrombosis/Pulmonary Embolism Present on Admission: No
== END 2022-04-02 11:34 | disposition home or self-care (01) ==
LOC: ED 01:51 → AC 02:38
PROVIDERS: Admitting Provider Surgery; Emergency Provider Emergency Medicine; PCP Physician Assistant; Referring Provider Emergency Medicine; Visit Provider Surgery
PROC: 0FT44ZZ Resection of Gallbladder, Percutaneous Endoscopic Approach (ICD-10-PCS; CPT 47562; principal; 2022-04-01 13:00)
DX: K80.00 Calculus of gallbladder with acute cholecystitis without obstruction (principal); F17.210 Nicotine dependence, cigarettes, uncomplicated; Z20.822 Contact with and (suspected) exposure to COVID-19
CPT/HCPCS: 47562; 36415; 76705; 80053; 81003; 81025; 83690; 85025; 87635; 96361; 96374; 96375; 96376; 99218; 99284; C9803; G0378; J0330; J0690; J1100; J1170; J2270; J2405; J2704; J2765; J3010

== ENCOUNTER 2022-08-22 07:24 | Emergency (ER) | payer OTHER, SELFPAY ==
[2022-04-04 10:28] VITALS: BMI 25.0
[2022-08-22 07:37] VITALS: BP 112/53; PULSE 69; RESP 16; TEMP 36.7; O2SAT 97; BMI 23.8
--- NOTE | 2022-08-22 07:47 | ED.FEMALEGU ---
HPI - Female Genitourinary General Chief complaint: Abdominal Pain Stated complaint: uterus feels heavy T-2/cramps/migraine/lightheaded Time Seen by Provider: 08/22/22 07:32 History of Present Illness HPI Narrative: Patient is a healthy 21-year-old female who presents today with heavy uterus.She reports that menstrual periods are usually late however her last 1 was July 05. She is not currently on any sort of control they are not actively trying to get but would not be unhappy they did. She denies any vaginal bleeding she is having some cramping. She did not take any pain medications prior to arrival. She feels slightly nauseous. She has not vomited. She is no painful frequent urination. Her menstrual cycles are usually a little bit late but this late. Related Data Home Medications Medication Instructions Recorded Confirmed doxycycline hyclate 100 mg capsule 100 mg PO BID 03/17/19 04/11/22 metronidazole 500 mg tablet 500 mg PO TID 03/17/19 04/11/22 Previous Rx's Medication Instructions Recorded docusate sodium 100 mg capsule 100 mg PO BID #14 caps 04/02/22 (Colace) hydrocodone 5 mg-acetaminophen 325 2 tab PO Q6H PRN pain #14 tabs 04/02/22 mg tablet ibuprofen 800 mg tablet 800 mg PO Q6H #20 tabs 04/02/22 ondansetron 4 mg disintegrating 4 mg PO Q6H PRN nausea and 04/04/22 tablet vomiting #30 tabs ondansetron 4 mg disintegrating 4 mg PO Q8H PRN nausea and 08/22/22 tablet vomiting #10 tabs Allergies Allergy/AdvReac Type Severity Reaction Status Date / Time No Known Drug Allergies Allergy Verified 04/11/22 15:04 Patient History Medical History Chlamydia infection Surgical History Hx laparoscopic cholecystectomy tobacco type: vaping Substance Use Type: does not use Exam Initial Vital Signs Initial Vital Signs: Vital Signs Temperature 98.1 F 08/22/22 07:37 Pulse Rate 69 08/22/22 07:37 Respiratory Rate 16 08/22/22 07:37 Blood Pressure 112/53 L 08/22/22 07:37 Pulse Oximetry 97 08/22/22 07:37 Oxygen Delivery Method Room Air 08/22/22 07:37 GENERAL: Alert pleasant well-appearing 21-year-old female and in no acute distress. HEENT: Head atraumatic,EOMI, pupils reactive, face symmetric, moist mucous membranes CARDIOVASCULAR: Regular rate and rhythm without murmurs, rubs or gallops. RESPIRATORY: Breath sounds equal bilaterally, no wheezes rales or rhonchi. ABDOMEN: Soft, nontender. Normoactive bowel sounds all 4 quadrants. No guarding or rebound. No specific right lower quadrant pain no left lower quadrant pain no distention. EXTREMITIES: Normal range of motion, no clubbing or edema. Neurovascularly intact NEUROLOGICAL: Alert and oriented x4. SKIN: Warm, dry, no laceration, no petechiae, no rashes or lesions. Course Orders Ordered: Discontinued Medications Acetaminophen (Acetaminophen 325 Mg Tablet) 975 mg PO NOW ONE Stop: 08/22/22 07:51 Last Admin: 08/22/22 08:01 Dose: 975 mg Ondansetron HCl (Ondansetron 4 Mg Odt) 4 mg SL NOW ONE Stop: 08/22/22 07:51 Last Admin: 08/22/22 08:02 Dose: 4 mg Vital Signs Vital signs: Vital Signs - 8 hr 08/22/22 07:37 Temperature 98.1 F Pulse Rate 69 Respiratory Rate 16 Blood Pressure 112/53 L Pulse Oximetry 97 Oxygen Delivery Method Room Air MDM - Female Genitourinary Lab Data Labs: Point of Care Testing Test Results Negative Urine Dip Bedside Urine Glucose Negative Bedside Urine Bilirubin - Negative Bedside Urine Ketone - Negative Urine Specific [place] 1.015 Bedside Urine Occult Blood - Negative Bedside Urine pH 6.0 Bedside Urine Protein - Negative Bedside Urine Urobilinogen - Negative Bedside Urine Nitrite - Negative Bedside Urine Leukocytes - Negative Esterase [facility] Narrative Medical decision making narrative: Patient is a healthy 21-year-old female who presents with heavy uterus. She has amenorrhea for the last 6-7 weeks, urine test and urinalysis are both negative. She has no specific localization of pain low suspicion for ovarian cyst or ovarian torsion. She is afebrile. I suspect maybe she is starting her menstrual cycle soon. At this time I see really no need for any further testing. Who will ultimately need blood work and ultrasound however at this time I do not think it is emergent. Discharge Plan Departure Patient Disposition: Home Clinical Impression: Amenorrhea, unspecified Instructions: DI for Amenorrhea Activity Restrictions/Additional Instructions: *You have been diagnosed with amenorrhea *What to do: If you continue to not have a menstrual cycle for the next couple of weeks then you definitely will need further evaluation. I do recommend an ultrasound and further blood work. 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 *Continue to take medications as directed Tylenol 1000 mg every 6 hours if needed for [id number] Zofran 4 mg every 8 hours if needed for nausea or vomiting--> SENT TO [facility] vitamin daily *Follow up with your primary care provider in 2-3 days or call [phone] *Return to ER if you should have increasing pain, heavy bleeding more than 2 super pad or tampon in 1 hour, [or] any new, worsening or concerning symptoms Prescriptions: New ondansetron 4 mg tablet,disintegrating 4 mg PO Q8H PRN (Reason: nausea and vomiting) Qty: 10 0RF No Action ondansetron 4 mg tablet,disintegrating 4 mg PO Q6H PRN (Reason: nausea and vomiting) Qty: 30 0RF hydrocodone-acetaminophen 5-325 mg tablet 2 tab PO Q6H PRN (Reason: pain) Qty: 14 0RF Rx Instructions: take 1-2 tabs as needed every 6 hours. ibuprofen 800 mg tablet 800 mg PO Q6H Qty: 20 0RF docusate sodium [Colace] 100 mg capsule 100 mg PO BID Qty: 14 0RF Rx Instructions: take while taking [place] for pain to prevent constipation. if you become constipated, take Miralax or call [facility] for advice. doxycycline hyclate 100 mg capsule 100 mg PO BID Patient Comments: TAKE 1 CAPSULE BY MOUTH TWICE DAILY metronidazole 500 mg tablet 500 mg PO TID Patient Comments: TAKE 1 TABLET BY MOUTH THREE TIMES DAILY Referrals: Ponce Tyson PA-C [Primary Care Provider] - Stand Alone Forms: Patient Portal/API
[2022-08-22] MEDS: ACETAMINOPHEN 325 MG TABLET 975 MG PO (08:01)
[2022-08-22] MEDS: ONDANSETRON 4 MG ODT SL (08:02)
== END 2022-08-22 08:08 | disposition home or self-care (01) ==
PROVIDERS: Emergency Provider Emergency Medicine; PCP Physician Assistant
DX: N91.2 Amenorrhea, unspecified (principal)
CPT/HCPCS: 81003; 81025; 99282; 99283

== ENCOUNTER 2022-11-14 17:13 | Emergency (ER) | payer OTHER, SELFPAY ==
[2022-04-04 10:28] VITALS: BMI 25.0
[2022-11-14 17:16] VITALS: BP 114/54; PULSE 68; RESP 14; TEMP 36.4; O2SAT 99; BMI 23.6
--- NOTE | 2022-11-14 17:28 | DI.US.S_ITS ---
PROCEDURE: US OB <= 14 WEEKS FETUS INDICATIONS: PAIN OUTSIDE/PRIOR DATING DATA: Last menstrual period (LMP): . LMP-based estimated date of delivery (RADHAMES): 06/21/2023. First dating scan (date and location): 11/14/2022 at . Estimated date of delivery (RADHAMES) from first dating scan: 07/11/2023. TECHNIQUE: Real-time scanning was performed of the fetus and maternal pelvic organs, with image documentation. Endovaginal scanning was also performed to better visualize the fetus and maternal ovaries. COMPARISON: None. FINDINGS: There is a single living IUP. The gestation sac is close to the lower uterine segment. Embryo: 5 weeks 6 days Heart rate: 110 BPM Maternal organs: Ovaries are grossly normal.. IMPRESSION: 1. A single living IUP with the estimated gestational age 5 weeks 6 days. cardiac tone is present. 2. The sac is in the lower uterine segment, indeterminate in clinical significance. Recommend close clinical monitoring and imaging follow-up. We strive to produce accurate, complete, and clear reports of imaging services. To assist us in improving patient care, this report was composed using standard report templates and voice recognition software. Therefore, it may contain abnormal punctuation, insertions and/or omissions. Occasional wrong-word or sound-alike substitutions may occur. Though we review the report and make efforts to correct it, we do recommend that the report be read carefully in proper context to recognize any text inaccuracies Dictated by: Aaron Frye M.D. on 11/14/2022 at 18:34 Approved by: Aaron Frye M.D. on 11/14/2022 at 18:37
[2022-11-14] MEDS: ACETAMINOPHEN 325 MG TABLET 650 MG PO (17:42)
[2022-11-14 17:56] LABS: Add Manual Diff / Slide Review NO; Basophils Absolute Auto 100 /uL (0-100); Basophils Percent Auto 1.1 % (0-2); Eosinophils Absolute Auto 100 /uL (0-450); Eosinophils Percent Auto 0.7 % (2-4); Hematocrit 39.5 % (36-46); Hemoglobin 13.2 g/dL (12.0-16.0); Lymphocytes Absolute Auto 2500 /uL (1100-4500); Lymphocytes Percent Auto 20.5 % (25-40); Mean Corpuscular HGB Conc 33.5 % (30-36); Mean Corpuscular Hemoglobin 29.2 PG (26-34); Mean Corpuscular Volume 87.1 fL (80-100); Monocytes Absolute Auto 800 /uL (0-900); Monocytes Percent Auto 6.3 % (3-14); Neutrophils Absolute Auto 8700 /uL (1500-7000); Neutrophils Percent Auto 71.4 % (50-75); Platelet Count 228 X10^3/uL (150-400); Red Blood Cell Count 4.53 X10^6/uL (4.0-5.2); Red Cell Distribution Width 13.4 % (11.6-14.8); White Blood Cell Count 12.2 X10^3/uL (4.5-11.0)
[2022-11-14 18:04] LABS: Alanine Aminotransferase 19 IU/L (<35); Albumin 4.2 g/dL (3.5-5.0); Albumin Globulin Ratio 1.4 (1.0-2.8); Alkaline Phosphatase 48 U/L (38-126); Aspartate Aminotransferase 21 IU/L (14-36); BUN Creatinine Ratio 16.9 (6-22); Bilirubin Total 0.2 mg/dL (0.2-1.3); Blood Urea Nitrogen 11 mg/dL (7-17); Carbon Dioxide 26 mmol/L (22-32); Chloride 101 mmol/L (98-107); Estimated Glomerular Filt Rate > 60 mL/min (>60); Globulin 2.9 g/dL (1.7-4.1); Glucose 89 mg/dL (70-100); HEMOLYSIS < 15 (0-50); Potassium 3.9 mmol/L (3.4-5.1); Sodium 135 mmol/L (137-145); Total Protein 7.1 g/dL (6.3-8.2)
[2022-11-14] MEDS: ONDANSETRON 4 MG ODT SL (18:32)
--- NOTE | 2022-11-14 18:32 | ED.GENADULT ---
HPI - General Adult General Chief complaint: OB/Uterine Contractions Stated complaint: just found out she is ,nausea,belly cramps Time Seen by Provider: 11/14/22 18:14 Source: patient Mode of arrival: Ambulatory History of Present Illness HPI narrative: 22-year-old female nonsmoker with noncontributory medical history is a at about 5 or 6 weeks. She states that she had some mild lower abdominal cramping earlier today but denies vaginal bleeding, discharge or urinary complaints. She states she took a home test which was positive and she wanted to be checked out. She denies dizziness, weakness or lightheadedness. She has no chest pain or shortness of breath. Related Data Home Medications Medication Instructions Recorded Confirmed doxycycline hyclate 100 mg capsule 100 mg PO BID 03/17/19 04/11/22 metronidazole 500 mg tablet 500 mg PO TID 03/17/19 04/11/22 Previous Rx's Medication Instructions Recorded docusate sodium 100 mg capsule 100 mg PO BID #14 caps 04/02/22 (Colace) hydrocodone 5 mg-acetaminophen 325 2 tab PO Q6H PRN pain #14 tabs 04/02/22 mg tablet ibuprofen 800 mg tablet 800 mg PO Q6H #20 tabs 04/02/22 ondansetron 4 mg disintegrating 4 mg PO Q6H PRN nausea and 04/04/22 tablet vomiting #30 tabs ondansetron 4 mg disintegrating 4 mg PO Q8H PRN nausea and 08/22/22 tablet vomiting #10 tabs ondansetron 4 mg disintegrating 4 mg PO TID-QID PRN nausea and 11/14/22 tablet vomiting #20 tabs Allergies Allergy/AdvReac Type Severity Reaction Status Date / Time No Known Drug Allergies Allergy Verified 11/14/22 17:25 Review of Systems Review of Systems Narrative: GENERAL: Denies chills, fatigue, malaise, fever, sweats. HEENT: Denies sinus pain, ear pain, sore throat, difficulty swallowing, dizziness. RESPIRATORY: Denies dyspnea, cough, wheezing, hemoptysis, sputum. CARDIOVASCULAR: Denies chest pain, palpitations, orthopnea, edema, GASTROINTESTINAL: See HPI : See HPI MUSCULOSKELETAL: denies weakness, joint pain, or bony pain SKIN: Denies rash, skin lesions, or other NEUROLOGIC: Denies weakness, headache, numbness, change in speech, confusion, seizures, incoordination. PSYCHIATRIC: No concerning psychosocial issues. 12 point review of systems is negative except for those stated above Patient History Medical History Chlamydia infection Surgical History Hx laparoscopic cholecystectomy Social History household members: spouse Smoking Status: Unknown if ever smoked alcohol intake: former Smoking Status: Unknown if ever smoked tobacco type: vaping alcohol intake frequency: holidays/special occasions only Substance Use Type: does not use Exam Narrative Exam Narrative: GENERAL: [22] year old patient appears stated age. Well-developed patient, in mild distress. HEAD: Atraumatic. Normocephalic. EYES: Pupils equal round and reactive. Extraocular motions intact. No scleral icterus. No injection or drainage. ENT: Nose without bleeding, purulent drainage. Throat without erythema, tonsillar hypertrophy or exudate. Airway patent. NECK: Trachea midline. Non tender CARDIOVASCULAR: Regular rate and rhythm without murmurs, gallops, or rubs. RESPIRATORY: Clear to auscultation. Breath sounds equal bilaterally. No wheezes, rales, or rhonchi. GASTROINTESTINAL: Abdomen soft, non-tender, nondistended. EXTREMITIES: No edema or joint tenderness. BACK: Nontender without deformity or crepitance. No flank tenderness. NEURO: AOx3. SKIN: No rash or erythema of visible areas Initial Vital Signs Initial Vital Signs: Vital Signs Temperature 97.6 F 11/14/22 17:16 Pulse Rate 68 11/14/22 17:16 Respiratory Rate 14 11/14/22 17:16 Blood Pressure 114/54 L 11/14/22 17:16 Pulse Oximetry 99 11/14/22 17:16 Oxygen Delivery Method Room Air 11/14/22 17:16 Course Orders Ordered: Discontinued Medications Acetaminophen (Acetaminophen 325 Mg Tablet) 650 mg PO NOW ONE Stop: 11/14/22 17:39 Last Admin: 11/14/22 17:42 Dose: 650 mg Documented By: MOODY Ondansetron HCl (Ondansetron 4 Mg Odt) 4 mg SL NOW ONE Stop: 11/14/22 18:30 Last Admin: 11/14/22 18:32 Dose: 4 mg Documented By: ALESSIO Vital Signs Vital signs: Vital Signs - 8 hr 11/14/22 17:16 Temperature 97.6 F Pulse Rate 68 Respiratory Rate 14 Blood Pressure 114/54 L Pulse Oximetry 99 Oxygen Delivery Method Room Air Medical Decision Making Lab Data 11/14/22 17:39 11/14/22 17:39 Labs: Lab Results 11/14/22 11/14/22 11/14/22 Range/Units 17:39 17:39 17:39 WBC 12.2 H (4.5-11.0) X10^3/uL RBC 4.53 (4.0-5.2) X10^6/uL Hgb 13.2 (12.0-16.0) g/dL Hct 39.5 (36-46) % MCV 87.1 (80-100) fL MCH 29.2 (26-34) PG MCHC 33.5 (30-36) % RDW 13.4 (11.6-14.8) % Plt Count 228 (150-400) X10^3/uL Neut % (Auto) 71.4 (50-75) % Lymph % (Auto) 20.5 L (25-40) % [place] % (Auto) 6.3 (3-14) % Eos % (Auto) 0.7 L (2-4) % Baso % (Auto) 1.1 (0-2) % Neut # (Auto) 8700 H (0347-7136) /uL Lymph # (Auto) 2500 (8311-3169) /uL [place] # (Auto) 800 (0-900) /uL Eos # (Auto) 100 (0-450) /uL Baso # (Auto) 100 (0-100) /uL Sodium 135 L (137-145) mmol/L Potassium 3.9 (3.4-5.1) mmol/L Chloride 101 (98-107) mmol/L Carbon Dioxide 26 (22-32) mmol/L BUN 11 (7-17) mg/dL Creatinine 0.65 (0.52-1.04) mg/dL Estimated GFR > 60 (>60) mL/min BUN/Creatinine Ratio 16.9 (6-22) Glucose 89 (70-100) mg/dL Calcium 9.0 (8.4-10.2) mg/dL Total Bilirubin 0.2 (0.2-1.3) mg/dL AST 21 (14-36) IU/L ALT 19 (<35) IU/L Alkaline Phosphatase 48 (38-126) U/L Total Protein 7.1 (6.3-8.2) g/dL Albumin 4.2 (3.5-5.0) g/dL Globulin 2.9 (1.7-4.1) g/dL Albumin/Globulin Ratio 1.4 (1.0-2.8) HCG, Quant mIU/mL Blood Type O Positive 11/14/22 Range/Units 17:39 WBC (4.5-11.0) X10^3/uL RBC (4.0-5.2) X10^6/uL Hgb (12.0-16.0) g/dL Hct (36-46) % MCV (80-100) fL MCH (26-34) PG MCHC (30-36) % RDW (11.6-14.8) % Plt Count (150-400) X10^3/uL Neut % (Auto) (50-75) % Lymph % (Auto) (25-40) % [place] % (Auto) (3-14) % Eos % (Auto) (2-4) % Baso % (Auto) (0-2) % Neut # (Auto) (5227-9466) /uL Lymph # (Auto) (7658-5755) /uL [place] # (Auto) (0-900) /uL Eos # (Auto) (0-450) /uL Baso # (Auto) (0-100) /uL Sodium (137-145) mmol/L Potassium (3.4-5.1) mmol/L Chloride (98-107) mmol/L Carbon Dioxide (22-32) mmol/L BUN (7-17) mg/dL Creatinine (0.52-1.04) mg/dL Estimated GFR (>60) mL/min BUN/Creatinine Ratio (6-22) Glucose (70-100) mg/dL Calcium (8.4-10.2) mg/dL Total Bilirubin (0.2-1.3) mg/dL AST (14-36) IU/L ALT (<35) IU/L Alkaline Phosphatase (38-126) U/L Total Protein (6.3-8.2) g/dL Albumin (3.5-5.0) g/dL Globulin (1.7-4.1) g/dL Albumin/Globulin Ratio (1.0-2.8) HCG, Quant 43869 mIU/mL Blood Type Point of Care Testing Test Results Positive Urine Dip Bedside Urine Glucose Negative Bedside Urine Bilirubin - Negative Bedside Urine Ketone - Negative Urine Specific [place] 1.010 Bedside Urine Occult Blood - Negative Bedside Urine pH 7.0 Bedside Urine Protein - Negative Bedside Urine Urobilinogen - Negative Bedside Urine Nitrite - Negative Bedside Urine Leukocytes - Negative Esterase Point of care testing: Point of Care Testing Test Results Positive Urine Dip Bedside Urine Glucose Negative Bedside Urine Bilirubin - Negative Bedside Urine Ketone - Negative Urine Specific [place] 1.010 Bedside Urine Occult Blood - Negative Bedside Urine pH 7.0 Bedside Urine Protein - Negative Bedside Urine Urobilinogen - Negative Bedside Urine Nitrite - Negative Bedside Urine Leukocytes - Negative Esterase MDM Narrative Medical decision making narrative: [22] year old patient presents with newly discovered Multiple etiologies for patient's symptoms considered including, but not limited to: [Ectopic versus implantation versus other] Prior Charts reviewed in our EMR Primary Historian: patient Labs reviewed and interpreted by myself: No significant lab abnormalities, ECG 27,542, Rh positive Imaging reviewed: IUP at 5 weeks 6 days Patient's symptoms improved over duration of stay with above-stated therapies. Findings and discharge diagnosis discussed with patient/family followed by verbalization of understanding Return precautions discussed with patient/family whom verbalize understanding of diagnosis and plan Discharge Plan Departure Patient Disposition: Home Clinical Impression: Instructions: DI for -- Discomforts and Remedies Activity Restrictions/Additional Instructions: *You have been diagnosed with [intrauterine measuring 5 weeks and 6 days by ultrasound ] *What to do: *Please continue to take your regular medications as directed. [x ] New medication prescriptions sent to your pharmacy: [ [facility]] [ ] New medication written as a paper prescription [ ] No new medications given *Please follow up with your primary care provider in 2-3 days, call for an appointment. Let them know you were seen in the Emergency Department and that we ask that you be seen in follow up. We will electronically transmit a record of today's note if your PCP is in our system * as we discussed I have included the contact information for the on-call roll trucker. Please contact the office tomorrow, let them know that you were seen in the emergency department and we would like you seen in follow-up. *Return to Emergency Department if you should have any new, worsening or concerning symptoms, such as [fever greater than 101 F, shaking chills, worsening pain, persistent vomiting or other bothersome symptoms] Prescriptions: New ondansetron 4 mg tablet,disintegrating 4 mg PO TID-QID PRN (Reason: nausea and vomiting) Qty: 20 0RF No Action ondansetron 4 mg tablet,disintegrating 4 mg PO Q6H PRN (Reason: nausea and vomiting) Qty: 30 0RF hydrocodone-acetaminophen 5-325 mg tablet 2 tab PO Q6H PRN (Reason: pain) Qty: 14 0RF Rx Instructions: take 1-2 tabs as needed every 6 hours. ibuprofen 800 mg tablet 800 mg PO Q6H Qty: 20 0RF docusate sodium [Colace] 100 mg capsule 100 mg PO BID Qty: 14 0RF Rx Instructions: take while taking [place] for pain to prevent constipation. if you become constipated, take Miralax or call [facility] for advice. ondansetron 4 mg tablet,disintegrating 4 mg PO Q8H PRN (Reason: nausea and vomiting) Qty: 10 0RF doxycycline hyclate 100 mg capsule 100 mg PO BID Patient Comments: TAKE 1 CAPSULE BY MOUTH TWICE DAILY metronidazole 500 mg tablet 500 mg PO TID Patient Comments: TAKE 1 TABLET BY MOUTH THREE TIMES DAILY Referrals: Ponce Tyson PA-C [Primary Care Provider] - Stand Alone Forms: Patient Portal/API
[2022-11-14 18:56] VITALS: BP 105/58; PULSE 65; O2SAT 100
[2022-11-14 19:43] LABS: HCG Quantitative /Beta subunit 27542 mIU/mL
== END 2022-11-14 18:56 | disposition home or self-care (01) ==
PROVIDERS: Emergency Medicine; Emergency Provider Emergency Medicine; PCP Physician Assistant
DX: O26.891 Other specified pregnancy related conditions, first trimester (principal); R10.9 Unspecified abdominal pain; Z3A.01 Less than 8 weeks gestation of pregnancy
CPT/HCPCS: 36415; 76801; 76817; 80053; 81003; 81025; 84702; 85025; 86900; 86901; 99283

== ENCOUNTER → 2022-12-29 14:23 | Outpatient (CLI) | payer OTHER, SELFPAY ==
[2022-04-04 10:28] VITALS: BMI 25.0
[2022-12-29 15:21] LABS: Add Manual Diff / Slide Review NO; Basophils Absolute Auto 100 /uL (0-100); Basophils Percent Auto 0.5 % (0-2); Eosinophils Absolute Auto 100 /uL (0-450); Eosinophils Percent Auto 0.4 % (2-4); Hematocrit 38.3 % (36-46); Hemoglobin 13.1 g/dL (12.0-16.0); Lymphocytes Absolute Auto 2500 /uL (1100-4500); Lymphocytes Percent Auto 19.4 % (25-40); Mean Corpuscular HGB Conc 34.1 % (30-36); Mean Corpuscular Volume 87.9 fL (80-100); Monocytes Absolute Auto 700 /uL (0-900); Monocytes Percent Auto 5.2 % (3-14); Neutrophils Absolute Auto 9600 /uL (1500-7000); Neutrophils Percent Auto 74.5 % (50-75); Platelet Count 250 X10^3/uL (150-400); Red Blood Cell Count 4.36 X10^6/uL (4.0-5.2); Red Cell Distribution Width 13.3 % (11.6-14.8); White Blood Cell Count 12.9 X10^3/uL (4.5-11.0)
[2022-12-30 07:39] LABS: RPR Screen Non Reactive (Non Reactive)
[2022-12-30 08:09] LABS: Varicella IgG Antibody 1170 index (Immune >165)
[2023-01-01 16:48] LABS: Hepatitis B Surface Antigen NEGATIVE s/c (NEGATIVE); Rubella Antibody IgG 70.6 IU/mL (>15)
[2023-01-01 16:56] LABS: HIV 1 & 2 Ab/Ag 4th Gen Combo NEGATIVE (NEGATIVE); Hep C Virus Ab w/Reflex Quant NEGATIVE s/c (NEGATIVE)
== END ==
PROVIDERS: PCP Physician Assistant; Referring Provider Obstetrics & Gynecology; Visit Provider Obstetrics & Gynecology
DX: Z34.00 Encounter for supervision of normal first pregnancy, unspecified trimester (principal)
CPT/HCPCS: 36415; 80055; 86787; 86803; 86850; 86900; 86901; 87086; 87389

== ENCOUNTER 2023-01-03 05:31 | Emergency (ER) | payer OTHER, SELFPAY ==
[2022-04-04 10:28] VITALS: BMI 25.0
[2023-01-03 05:39] VITALS: BP 104/62; PULSE 63; RESP 18; TEMP 36.9; O2SAT 100; BMI 26.1
--- NOTE | 2023-01-03 06:03 | ED.GENADULT ---
HPI - General Adult <Thomas Abrams DO - Last Filed: 01/03/23 21:31> General Chief complaint: Abdominal Pain Stated complaint: abd pain, migraine Time Seen by Provider: 01/03/23 05:50 Source: patient Mode of arrival: Ambulatory History of Present Illness HPI narrative: Patient is a 22-year-old at approximately 13 weeks EGA who is here for evaluation of left-sided adnexal pain that started approximately 0200 hours this morning and also a migraine headache. She has a history of migraines. She normally takes ibuprofen 2 treat the symptoms however she is not been able to do that because of her status. She was told to take Tylenol. She did take 500 mg of Tylenol approximately 1 hour prior to arrival without any improvement of her headache. She states that the headache started shortly after she woke up at about 0200 hours in the morning with abdominal discomfort. She describes it as sharp. It is on the left side. She is Rh positive. Has a confirmed intrauterine by previous ultrasound. She denies vaginal bleeding. No urinary symptoms. No change in bowel habits. Is having nausea but no vomiting. No fevers. Related Data Home Medications Medication Instructions Recorded Confirmed magnesium glycinate-mag oxide 120 mg PO .hs PRN insomnia 12/07/22 12/07/22 vitamin-ferrous sulfate tab PO 12/07/22 12/07/22 27 mg iron-folic acid 0.8 mg tablet Allergies Allergy/AdvReac Type Severity Reaction Status Date / Time asparagus Allergy Severe Anaphylaxis Verified 12/07/22 14:02 Review of Systems <Thomas Abrams DO - Last Filed: 01/03/23 21:31> Constitutional Constitutional: Reports system reviewed and no additional complaints, except as documented Gastrointestinal Gastrointestinal: Reports system reviewed and no additional complaints, except as documented Genitourinary Genitourinary: Reports system reviewed and no additional complaints, except as documented Integumentary/Breasts Skin/Breast: Reports system reviewed and no additional complaints, except as documented Hematologic/Lymphatic On Anticoagulants: No Patient History <Thomas Abrams DO - Last Filed: 01/03/23 21:31> Medical History Acute cholecystitis due to biliary calculus Chlamydia infection Genital herpes IBS (irritable bowel syndrome) Migraine with aura PCOS (polycystic ovarian syndrome) PID (acute pelvic inflammatory disease) PTSD (post-traumatic stress disorder) Symptomatic cholelithiasis Surgical History (Updated 12/07/22 @ 14:10 by Sybil Mtz RN) Hx laparoscopic cholecystectomy (~04/2022) [place] teeth extracted (~2017) Family History (Updated 12/07/22 @ 14:13 by Sybil Mtz RN) Grandmother Congestive heart failure Dementia Grandfather Diabetes mellitus Mother Hypertension Family/Other Skin disease Social History marital status: number of children: 0 household members: spouse lives independently: Yes caregiver/support person: No housing: apartment pets and animals: Yes (dog and cat) education level: high school occupational 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 [email or web address]) current occupational exposures/hazards: No (not while ) special genesis needs: No travel history: over 6 months ago seatbelt use: always water heater temp set < 120 deg: Yes working smoke detector in home: Yes fire extinguisher in home: No carbon monox detector in home: Yes firearms in home: Yes firearms unloaded and locked: Yes do you feel safe at home: Yes Smoking Status: Former smoker Tobacco: How many years used: 5 second hand exposure: No alcohol intake: former substance use type: does not use during the past year weight has: remained stable well-balanced diet: rarely or never daily servings fruits/ve-1 caffeine: Yes (<100mg) Type(s) of exercise: weight lifting Smoking Status: Former smoker tobacco type: vaping alcohol intake frequency: holidays/special occasions only Substance Use Type: does not use Exam <Thomas Abrams DO - Last Filed: 01/03/23 21:31> Initial Vital Signs Initial Vital Signs: Vital Signs Temperature 98.4 F 01/03/23 05:39 Pulse Rate 63 01/03/23 05:39 Respiratory Rate 18 01/03/23 05:39 Blood Pressure 104/62 01/03/23 05:39 Pulse Oximetry 100 01/03/23 05:39 Oxygen Delivery Method Room Air 01/03/23 05:39 HENMT Head: normal to inspection and normocephalic Resp Effort & Inspection: normal respiratory effort Cardio Rate: regular rate GI Inspection: normal to inspection and non-distended Palpation: soft, guarding and tender (Left adnexa) Back/Spine/Pelvis Back: No CVA tenderness Skin General: no rashes or lesions noted Neuro General: patient alert, patient awake and moves all extremities Extrem General: normal to inspection and capillary refill normal <Dinora Brady DO - Last Filed: 01/03/23 11:10> Initial Vital Signs Initial Vital Signs: Vital Signs Temperature 98.4 F 01/03/23 05:39 Pulse Rate 63 01/03/23 05:39 Respiratory Rate 18 01/03/23 05:39 Blood Pressure 104/62 01/03/23 05:39 Pulse Oximetry 100 01/03/23 05:39 Oxygen Delivery Method Room Air 01/03/23 05:39 Course <Thomas Abrams DO - Last Filed: 01/03/23 21:31> Orders Ordered: Discontinued Medications Diphenhydramine HCl (Diphenhydramine 50 Mg/Ml Vial) 25 mg IV NOW ONE Stop: 01/03/23 06:06 Last Admin: 01/03/23 06:33 Dose: 25 mg Documented By: MAXWELL Sodium Chloride (Normal Saline 0.9%) 1,000 mls @ 1,000 mls/hr IV BOLUS ONE Stop: 01/03/23 07:04 Last Infusion: 01/03/23 07:59 Dose: 0 mls/hr Documented By: Admin: 01/03/23 06:33 Dose: 1,000 mls/hr Documented By: MAXWELL Metoclopramide HCl (Metoclopramide 10 Mg/2 Ml Inj) 10 mg IV NOW ONE Stop: 01/03/23 06:06 Last Admin: 01/03/23 06:33 Dose: 10 mg Documented By: SB Vital Signs Vital signs: Vital Signs - 8 hr 01/03/23 05:39 01/03/23 07:45 01/03/23 09:10 Temperature 98.4 F Pulse Rate 63 67 75 Respiratory Rate 18 16 20 Blood Pressure 104/62 100/56 L 99/55 L Pulse Oximetry 100 100 99 Oxygen Delivery Method Room Air Room Air Room Air <DO Marysol Pearson Last Filed: 01/03/23 11:10> Orders Ordered: Discontinued Medications Diphenhydramine HCl (Diphenhydramine 50 Mg/Ml Vial) 25 mg IV NOW ONE Stop: 01/03/23 06:06 Last Admin: 01/03/23 06:33 Dose: 25 mg Documented By: MAXWELL Sodium Chloride (Normal Saline 0.9%) 1,000 mls @ 1,000 mls/hr IV BOLUS ONE Stop: 01/03/23 07:04 Last Infusion: 01/03/23 07:59 Dose: 0 mls/hr Documented By: Admin: 01/03/23 06:33 Dose: 1,000 mls/hr Documented By: MAXWELL Metoclopramide HCl (Metoclopramide 10 Mg/2 Ml Inj) 10 mg IV NOW ONE Stop: 01/03/23 06:06 Last Admin: 01/03/23 06:33 Dose: 10 mg Documented By: MAXWELL Vital Signs Vital signs: Vital Signs - 8 hr 01/03/23 05:39 01/03/23 07:45 01/03/23 09:10 Temperature 98.4 F Pulse Rate 63 67 75 Respiratory Rate 18 16 20 Blood Pressure 104/62 100/56 L 99/55 L Pulse Oximetry 100 100 99 Oxygen Delivery Method Room Air Room Air Room Air Medical Decision Making <Thomas Abrams DO - Last Filed: 01/03/23 21:31> Lab Data Labs: Urine Dip Bedside Urine Glucose Negative Bedside Urine Bilirubin - Negative Bedside Urine Ketone - Negative Urine Specific [place] 1.005 Bedside Urine Occult Blood - Negative Bedside Urine pH 6.0 Bedside Urine Protein - Negative Bedside Urine Urobilinogen - Negative Bedside Urine Nitrite - Negative Bedside Urine Leukocytes - Negative Esterase Point of care testing: Urine Dip Bedside Urine Glucose Negative Bedside Urine Bilirubin - Negative Bedside Urine Ketone - Negative Urine Specific [place] 1.005 Bedside Urine Occult Blood - Negative Bedside Urine pH 6.0 Bedside Urine Protein - Negative Bedside Urine Urobilinogen - Negative Bedside Urine Nitrite - Negative Bedside Urine Leukocytes - Negative Esterase [facility] Narrative Medical decision making narrative: Patient has a history of migraines and states this feels like 1 of her migraines however given her status we should avoid nonsteroidal anti-inflammatories. She has taken Tylenol without any improvement. Will treat with fluids and Benadryl and Reglan. She is also having lower abdominal discomfort. She is Rh positive. Urinalysis is unremarkable. She does have left adnexal tenderness. She has a history of PCOS. She is a known intrauterine from prior ultrasound. Will obtain another ultrasound today to evaluate status of and also evaluate left over. Care turned over to day provider to follow-up and disposition. <Dinora Caitlyn, DO - Last Filed: 01/03/23 11:10> Lab Data Labs: Urine Dip Bedside Urine Glucose Negative Bedside Urine Bilirubin - Negative Bedside Urine Ketone - Negative Urine Specific [place] 1.005 Bedside Urine Occult Blood - Negative Bedside Urine pH 6.0 Bedside Urine Protein - Negative Bedside Urine Urobilinogen - Negative Bedside Urine Nitrite - Negative Bedside Urine Leukocytes - Negative Esterase Point of care testing: Urine Dip Bedside Urine Glucose Negative Bedside Urine Bilirubin - Negative Bedside Urine Ketone - Negative Urine Specific [place] 1.005 Bedside Urine Occult Blood - Negative Bedside Urine pH 6.0 Bedside Urine Protein - Negative Bedside Urine Urobilinogen - Negative Bedside Urine Nitrite - Negative Bedside Urine Leukocytes - Negative Esterase Imaging Data US - OB: Radiologist's Impression: PROCEDURE:? US OB <= 14 WEEKS FETUS ? INDICATIONS:? LEFT ADNEXAL PAIN ? OUTSIDE/PRIOR DATING DATA:? Last menstrual period (LMP):? 09/14/2022.? LMP-based estimated date of delivery (RADHAMES):? 06/21/2023.? First dating scan (date and location):? 11/14/2022.? Estimated date of delivery (RADHAMES) from first dating scan:? 07/11/2023. Date at generated using working RADHAMES:? 07/11/2023. ? ? TECHNIQUE:? Real-time scanning was performed of the fetus, with image documentation and biometric measurements.? ? COMPARISON:? [facility] OB <= 14 WEEKS FETUS, 12/29/2022, 14:17.? [facility] OB <= 14 WEEKS FETUS, 11/14/2022, 17:58. ? ? FINDINGS:? ? General:? A single living intrauterine gestation is present.? Presentation:? Breech.? Placenta:? Placental position is posterior , without previa.? ? Amniotic fluid index:? n.a. heart rate:? 145 beats per minute.? Maternal cervical canal:? Not visualized. ? biometrics:? Biparietal diameter:? 14 weeks 0 day Head circumference:? 14 weeks 0 day Abdominal circumference:? 14 weeks 0 day Femur length:? 12 weeks 6 days Clinically estimated gestational age:? 13 weeks 0? Composite gestational age from present scan:? 13 weeks 5 days Estimated weight and percentile:? n.a. ? Ovaries are grossly normal. ? IMPRESSION:? ? 1. A single living intrauterine gestation is redemonstrated.? Interval growth is within normal limits. ? 2. No gross abnormalities are identified. ? 3. Ovaries are grossly normal.? ? ? We strive to produce accurate, complete, and clear reports of imaging services. To assist us in improving patient care, this report was composed using standard report templates and voice recognition software. Therefore, it may contain abnormal punctuation, insertions and/or omissions. Occasional wrong-word or sound-alike substitutions may occur. Though we review the report and make efforts to correct it, we do recommend that the report be read carefully in proper context to recognize any text inaccuracies. ? Dictated by: Aaron Frye M.D. on 01/03/2023 at 8:23 MDM Narrative Medical decision making narrative: Patient has a history of migraines and states this feels like 1 of her migraines however given her status we should avoid nonsteroidal anti-inflammatories. She has taken Tylenol without any improvement. Will treat with fluids and Benadryl and Reglan. She is also having lower abdominal discomfort. She is Rh positive. Urinalysis is unremarkable. She does have left adnexal tenderness. She has a history of PCOS. She is a known intrauterine from prior ultrasound. Will obtain another ultrasound today to evaluate status of and also evaluate left over. Care turned over to day provider to follow-up and disposition. Dr. Benito have received sign-out from Dr. Abrams is seen evaluated patient myself. Abdomen is soft nontender she reports that the headache is much improved she feels ready able to go home. Ultrasound does not show any significant abnormality. No need for further workup or admission. Discharge Plan Departure Patient Disposition: Home Clinical Impression: Headache Instructions: DI for Headache Activity Restrictions/Additional Instructions: *You have been diagnosed with headache *What to do: At this time baby appears healthy, ovaries normal. Increase fluids as tolerated *Continue to take medications as directed Tylenol 1000 mg every 6 hours if needed for pain *Follow up with your primary care provider in 2-3 days or call [phone] *Return to ER if you should have appreciate headache abdominal pain or any new, worsening or concerning symptoms Prescriptions: No Action vit-ferrous sulfat-FA 27 mg iron- 0.8 mg tablet PO magnesium glycinate-mag oxide 120 mg magnesium capsule 120 mg PO .hs PRN (Reason: insomnia) Referrals: Ponce Tyson PA-C [Primary Care Provider] - Stand Alone Forms: Patient Portal/API
--- NOTE | 2023-01-03 06:07 | DI.US.S_ITS ---
PROCEDURE: US OB <= 14 WEEKS FETUS INDICATIONS: LEFT ADNEXAL PAIN OUTSIDE/PRIOR DATING DATA: Last menstrual period (LMP): 09/14/2022. LMP-based estimated date of delivery (RADHAMES): 06/21/2023. First dating scan (date and location): 11/14/2022. Estimated date of delivery (RADHAMES) from first dating scan: 07/11/2023. Date at generated using working RADHAMES: 07/11/2023. TECHNIQUE: Real-time scanning was performed of the fetus, with image documentation and biometric measurements. COMPARISON: [facility], , OB <= 14 WEEKS FETUS, 12/29/2022, 14:17. [facility], , OB <= 14 WEEKS FETUS, 11/14/2022, 17:58. FINDINGS: General: A single living intrauterine gestation is present. Presentation: Breech. Placenta: Placental position is posterior , without previa. Amniotic fluid index: n.a. heart rate: 145 beats per minute. Maternal cervical canal: Not visualized. biometrics: Biparietal diameter: 14 weeks 0 day Head circumference: 14 weeks 0 day Abdominal circumference: 14 weeks 0 day Femur length: 12 weeks 6 days Clinically estimated gestational age: 13 weeks 0 Composite gestational age from present scan: 13 weeks 5 days Estimated weight and percentile: n.a. Ovaries are grossly normal. IMPRESSION: 1. A single living intrauterine gestation is redemonstrated. Interval growth is within normal limits. 2. No gross abnormalities are identified. 3. Ovaries are grossly normal. We strive to produce accurate, complete, and clear reports of imaging services. To assist us in improving patient care, this report was composed using standard report templates and voice recognition software. Therefore, it may contain abnormal punctuation, insertions and/or omissions. Occasional wrong-word or sound-alike substitutions may occur. Though we review the report and make efforts to correct it, we do recommend that the report be read carefully in proper context to recognize any text inaccuracies. Dictated by: Aaron Frye M.D. on 01/03/2023 at 8:23 Approved by: Aaron Frye M.D. on 01/03/2023 at 8:30
[2023-01-03] MEDS: diphenhydrAMINE 50 MG/ML VIAL 25 MG IV (06:33)
[2023-01-03] MEDS: SODIUM CHLORIDE 0.9% 1,000 ML 1000 ML IV (06:33)
[2023-01-03] MEDS: METOCLOPRAMIDE 10 MG/2 ML INJ IV (06:33)
[2023-01-03 07:45] VITALS: BP 100/56; PULSE 67; RESP 16; O2SAT 100
--- NOTE | 2023-01-03 07:45 | PC.NURSE ---
Patient currently denies having nausea and states abdominal pain is no longer there.
[2023-01-03 09:10] VITALS: BP 99/55; PULSE 75; RESP 20; O2SAT 99
== END 2023-01-03 09:17 | disposition home or self-care (01) ==
PROVIDERS: Emergency Provider Emergency Medicine; PCP Physician Assistant
DX: O26.891 Other specified pregnancy related conditions, first trimester (principal); R51.9 Headache, unspecified; Z3A.13 13 weeks gestation of pregnancy
CPT/HCPCS: 76801; 81003; 93976; 96361; 96374; 96375; 99283; 99284; J1200; J2765

== ENCOUNTER → 2023-01-23 14:28 | Outpatient (CLI) | payer OTHER, SELFPAY ==
[2022-04-04 10:28] VITALS: BMI 25.0
[2023-01-25 20:18] LABS: AFP, Serum 55.3 ng/mL (.); Estriol, Free 1.14 ng/mL (.); Inhibin A, MoM 0.49 (.); Maternal Ethnicity Other (.); Maternal Weight 157 lbs (.); Number of Fetuses No (.); OSBR Risk 1 IN 10000 (.); Results Report (.); Test Results *Screen Negative* (.); hCG, Serum 17974 mIU/mL (.)
== END ==
PROVIDERS: PCP Physician Assistant; Referring Provider Obstetrics & Gynecology; Visit Provider Obstetrics & Gynecology
DX: Z34.00 Encounter for supervision of normal first pregnancy, unspecified trimester (principal); Z3A.15 15 weeks gestation of pregnancy
CPT/HCPCS: 36415; 82105; 82677; 84702; 86336

== ENCOUNTER → 2023-02-21 14:35 | Outpatient (CLI) | payer OTHER, SELFPAY ==
[2022-04-04 10:28] VITALS: BMI 25.0
--- NOTE | 2023-02-21 14:36 | DI.US.S_ITS ---
PROCEDURE: US OB >= 14 WEEKS FETUS INDICATIONS: ANATOMY OUTSIDE/PRIOR DATING DATA: Last menstrual period (LMP): 09/14/2022. LMP-based estimated date of delivery (RADHAMES): 06/21/2023. First dating scan (date and location): 11/14/2022. Estimated date of delivery (RADHAMES) from first dating scan: 07/11/2023 The calculations are made using the ultrasound RADHAMES of 07/11/2023. TECHNIQUE: Real-time scanning was performed of the fetus, with image documentation and biometric measurements. Endovaginal scanning: Not performed. COMPARISON: [facility], OB <= 14 WEEKS FETUS, 01/03/2023, 6:19. FINDINGS: General: A single living intrauterine gestation is present. Presentation: Cephalic. Placenta: Placental position is posterior, without previa. Amniotic fluid index: 14.8 cm, normal range is 5-24 cm. Single deepest vertical pocket is 4.1 cm. heart rate: 144 beats per minute. Maternal cervical canal: 3.9 cm long. Normal lower limit is 2.5 cm. biometrics: Biparietal diameter: 4.7 cm, 20 weeks 1 day Head circumference: 17.6 cm, 20 weeks 1 day Abdominal circumference: 15.2 cm, 20 weeks 3 days Femur length: 3.2 cm, 20 weeks 0 days Clinically estimated gestational age: 20 weeks 0 days Composite gestational age from present scan: 20 weeks 1 day Estimated weight and percentile: 340 g, 59th percentile Anatomic survey: Neuro: Ventricles are non-dilated at less than 10 mm. Cisterna magna is normal at 3-11 mm. Cerebellum is normal in size and morphology. Nuchal skin fold: Normal at less than 6 mm between 14-21 weeks gestational age. Face: Nose and lips, facial profile are normal. Spine: No evidence for spina bifida. Heart: 4-chambered heart is present, with normal ventricular outflow tracts. Diaphragm: Diaphragm is intact. Stomach: Left-sided stomach is present. Kidneys: No hydronephrosis. Normal is less than 5 mm in 2nd trimester, less than 7 mm in 3rd trimester. Cord: 3-vessel cord has orthotopic insertion. Bladder: Normal in size. Extremities: All 4 extremities identified. IMPRESSION: 1. [place] living intrauterine at 20 weeks 1 day based on today's ultrasound. Fetus is in the 59th percentile for weight. 2. Normal placenta and amniotic fluid. 3. Normal and complete anatomic survey. We strive to produce accurate, complete, and clear reports of imaging services. To assist us in improving patient care, this report was composed using standard report templates and voice recognition software. Therefore, it may contain abnormal punctuation, insertions and/or omissions. Occasional wrong-word or sound-alike substitutions may occur. Though we review the report and make efforts to correct it, we do recommend that the report be read carefully in proper context to recognize any text inaccuracies. Dictated by: Deny Kelly M.D. on 02/21/2023 at 19:24 Approved by: Deny Kelly M.D. on 02/21/2023 at 19:28
== END ==
PROVIDERS: PCP Physician Assistant; Referring Provider Obstetrics & Gynecology; Visit Provider Obstetrics & Gynecology
DX: Z34.02 Encounter for supervision of normal first pregnancy, second trimester (principal); Z3A.20 20 weeks gestation of pregnancy
CPT/HCPCS: 76811

== ENCOUNTER → 2023-04-04 14:00 | Outpatient (CLI) | payer OTHER, SELFPAY ==
[2022-04-04 10:28] VITALS: BMI 25.0
[2023-04-04 15:33] LABS: Hematocrit 37.9 % (36-46); Hemoglobin 12.9 g/dL (12.0-16.0)
[2023-04-04 15:57] LABS: GTT (PREG) 1 Hour PP 50gm Dose 109 mg/dL (76-139)
== END ==
PROVIDERS: Referring Provider Student in an Organized Health Care Education/Training Program; Visit Provider Student in an Organized Health Care Education/Training Program
DX: Z34.00 Encounter for supervision of normal first pregnancy, unspecified trimester (principal); Z3A.24 24 weeks gestation of pregnancy
CPT/HCPCS: 36415; 82950; 85014; 85018

== ENCOUNTER 2023-05-02 16:48 | Observation (INO) | payer OTHER, SELFPAY ==
[2022-04-04 10:28] VITALS: BMI 25.0
[2023-05-02] MEDS: NIFEdipine 10 MG CAPSULE PO (17:53)
[2023-05-02 17:58] LABS: Appearance Urine UA CLOUDY; Bilirubin Urine UA NEGATIVE (NEGATIVE); Color Urine UA YELLOW; Glucose Urine UA NEGATIVE (Negative); Ketones Urine UA NEGATIVE (NEGATIVE); Leukocyte Esterase Urine UA NEGATIVE (NEGATIVE); Nitrite Urine UA NEGATIVE (Negative); Occult Blood Urine UA NEGATIVE (Negative); Protein Urine UA NEGATIVE (Negative); Specific Gravity Urine UA 1.015 (1.000-1.035); Urobilinogen Urine UA 0.2 E.U./dL (0.2)
[2023-05-02 18:12] LABS: Amorphous Sediment Urine 2+; Bacteria Urine None Seen; Culture Indicated Urine Cult Not Indicated; RBC Urine None Seen (0-5/HPF); Squamous Epithelial Cell Urine 0-1 /HPF (0-5/HPF); WBC Urine 0-1/HPF (0-5/HPF)
== END 2023-05-02 19:30 | disposition home or self-care (01) ==
PROVIDERS: Admitting Provider Obstetrics & Gynecology; Referring Provider Student in an Organized Health Care Education/Training Program; Visit Provider Student in an Organized Health Care Education/Training Program
DX: O60.02 Preterm labor without delivery, second trimester (principal); Z3A.25 25 weeks gestation of pregnancy
CPT/HCPCS: 59025; 59050; 81001; G0378; G0379

== ENCOUNTER 2023-06-12 14:45 | Observation (INO) | payer OTHER, SELFPAY ==
[2022-04-04 10:28] VITALS: BMI 25.0
[2023-06-12 16:28] LABS: Influenza A - CEPHEID Flu A NEGATIVE (NEGATIVE); Influenza B - CEPHEID Flu B NEGATIVE (NEGATIVE); Respiratory Syncytial Virus Negative (Negative)
[2023-06-12 16:31] LABS: COVID-19 CEPHEID 4-PLEX PCR POSITIVE (Negative)
[2023-06-12] MEDS: ACETAMINOPHEN 325 MG TABLET 975 MG PO (16:37)
== END 2023-06-12 17:07 | disposition home or self-care (01) ==
PROVIDERS: Obstetrics & Gynecology; Admitting Provider Student in an Organized Health Care Education/Training Program; Referring Provider Student in an Organized Health Care Education/Training Program; Visit Provider Student in an Organized Health Care Education/Training Program
DX: O98.513 Other viral diseases complicating pregnancy, third trimester (principal); U07.1 COVID-19; O26.893 Other specified pregnancy related conditions, third trimester; M54.50 Low back pain, unspecified; Z3A.35 35 weeks gestation of pregnancy
CPT/HCPCS: 0241U; 59025; G0378; G0379

== ENCOUNTER → 2023-06-21 13:48 | Outpatient (CLI) | payer OTHER, SELFPAY ==
[2022-04-04 10:28] VITALS: BMI 25.0
[2023-06-22 13:43] LABS: Strep Grp B PCR POS for Grp B Strep
== END ==
PROVIDERS: Visit Provider Student in an Organized Health Care Education/Training Program
DX: Z34.93 Encounter for supervision of normal pregnancy, unspecified, third trimester (principal); R82.71 Bacteriuria; Z3A.37 37 weeks gestation of pregnancy
CPT/HCPCS: 87653

== ENCOUNTER 2023-06-23 22:55 | Outpatient (CLI) | payer OTHER, SELFPAY ==
[2022-04-04 10:28] VITALS: BMI 25.0
== END 2023-06-24 00:10 | disposition home or self-care (01) ==
LOC: OB 06-26 06:20
PROVIDERS: Referring Provider Obstetrics & Gynecology; Visit Provider Obstetrics & Gynecology
DX: O36.8130 Decreased fetal movements, third trimester, not applicable or unspecified (principal); Z3A.33 33 weeks gestation of pregnancy
CPT/HCPCS: 59025; G0378; G0379

== ENCOUNTER 2023-07-06 10:13 | Inpatient (IN) | payer OTHER, SELFPAY ==
[2022-04-04 10:28] VITALS: BMI 25.0
[2023-07-06 11:30] VITALS: BP 128/72
[2023-07-06 11:38] LABS: Add Manual Diff / Slide Review NO; Basophils Absolute Auto 0 /uL (0-100); Basophils Percent Auto 0.4 % (0-2); Eosinophils Absolute Auto 100 /uL (0-450); Eosinophils Percent Auto 0.5 % (2-4); Hematocrit 40.1 % (36-46); Hemoglobin 13.5 g/dL (12.0-16.0); Lymphocytes Absolute Auto 1900 /uL (1100-4500); Lymphocytes Percent Auto 16.1 % (25-40); Mean Corpuscular HGB Conc 33.6 % (30-36); Mean Corpuscular Hemoglobin 28.5 PG (26-34); Mean Corpuscular Volume 84.8 fL (80-100); Monocytes Absolute Auto 700 /uL (0-900); Monocytes Percent Auto 5.8 % (3-14); Neutrophils Absolute Auto 8900 /uL (1500-7000); Neutrophils Percent Auto 77.2 % (50-75); Platelet Count 222 X10^3/uL (150-400); Red Blood Cell Count 4.73 X10^6/uL (4.0-5.2); Red Cell Distribution Width 13.8 % (11.6-14.8); White Blood Cell Count 11.5 X10^3/uL (4.5-11.0)
[2023-07-06] MEDS: OXYTOCIN PREMIX 30 UNIT/500 ML PLAST..BAG IV (11:41)
[2023-07-06] MEDS: LACTATED RINGERS 1,000 ML 100 ML IV ×2 (11:41→17:42)
[2023-07-06] MEDS: AMPICILLIN 2,000 MG in SODIUM CHLORIDE 0.9% 100 ML 200 MG IV (11:41)
--- NOTE | 2023-07-06 13:11 | PM.OBHP.IH.1 ---
OB HPI Date/Time Date of admission: 07/06/23 Date Patient Seen: 07/06/23 Time Patient Seen: 07:45 History of Present Condition Chief complaint: INDUCTION RADHAMES Calculator Estimated Delivery Date Method Current WG Current Estimate 07/11/23 Ultrasound #1 39w 2d Narrative: G1 here for elective IOL at 39w2d. Dating based on LMP c/w 1st trimester US. complicated by father of child having congenital heart anomaly (bicuspid aortic valve). Unable to see MFM during , will need echo following delivery. GBS positive. Membranes swept in clinic 07/05. Contractions intermittent and ongoing for past week. Good movement. No loss of fluid. care: good care Dating criteria OB: LMP confirmed by 1st trimester US Obstetrical complications: none Indications Indication for induction OB: other (elective IOL) Preadmission Labs Last OB Lab Results: Blood Type O Positive 07/06/23 11:00 Antibody Screen Negative 07/06/23 11:00 Hematocrit 40.1 % (36-46) 07/06/23 11:00 Hemoglobin 13.5 g/dL (12.0-16.0) 07/06/23 11:00 Hepatitis B Surface Antigen Negative s/c (NEGATIVE) 12/29/22 14:31 Hepatitis C Antibody Negative s/c (NEGATIVE) 12/29/22 14:31 Rubella Antibody 70.6 IU/mL (>15) 12/29/22 14:31 Varicella-Zoster IgG Antibody 1170 index (Immune >165) 12/29/22 14:31 Glucose 1 Hour 109 mg/dL (76-139) 04/04/23 15:21 Group B Streptococcus (PCR) Pos for grp b strep H 06/21/23 13:48 -: Chlamydia screen: negative and Gonorrhea screen: negative Genetic Screens: Quad screen: Normal Evaluation Evaluation Baseline heart rate: 145 Variability: Average (6-10) monitor accelerations: Present Monitor Decelerations: Absent Contraction Frequency (minutes): 3 Uterine Contraction Intensity: Strong/Firm Category of Tracing: Reactive Status: Category l Dilation (cm): 3 Effacement (%): 80 PFSH Medical History Acute cholecystitis due to biliary calculus Chlamydia infection Genital herpes IBS (irritable bowel syndrome) Migraine with aura PCOS (polycystic ovarian syndrome) PID (acute pelvic inflammatory disease) PTSD (post-traumatic stress disorder) Symptomatic cholelithiasis Surgical History (Updated 12/07/22 @ 14:10 by Sybil Mtz RN) [place] teeth extracted (~2017) Hx laparoscopic cholecystectomy (~04/2022) Family History (Updated 12/07/22 @ 14:13 by Sybil Mtz RN) Grandmother Congestive heart failure Dementia Grandfather Diabetes mellitus Mother Hypertension Family/Other Skin disease Social History marital status: number of children: 0 household members: spouse lives independently: Yes caregiver/support person: No housing: apartment pets and animals: Yes (dog and cat) education level: high school occupational 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 [employer]) current occupational exposures/hazards: No (not while ) special genesis needs: No travel history: over 6 months ago seatbelt use: always water heater temp set < 120 deg: Yes working smoke detector in home: Yes fire extinguisher in home: No carbon monox detector in home: Yes firearms in home: Yes firearms unloaded and locked: Yes do you feel safe at home: Yes Smoking Status: Former smoker Tobacco: How many years used: 5 second hand exposure: No alcohol intake: former substance use type: does not use during the past year weight has: remained stable well-balanced diet: rarely or never daily servings fruits/ve-1 caffeine: Yes (<100mg) Type(s) of exercise: weight lifting Meds Home Medications and Allergies Home Medications Medication Instructions Recorded Confirmed Type vitamin-ferrous sulfate tab PO 12/07/22 07/05/23 History 27 mg iron-folic acid 0.8 mg tablet RSV vac, preF A and preF B(PF) 120 0.5 ml IM ONCE #1 ea 06/21/23 07/05/23 Rx mcg/0.5 mL IM solution (Abrysvo) acyclovir 400 mg tablet 400 mg PO TID 5 weeks #105 tabs 06/21/23 07/06/23 Rx Allergies Allergy/AdvReac Type Severity Reaction Status Date / Time asparagus Allergy Severe Anaphylaxis Verified 07/05/23 14:04 Objective Labs 07/06/23 11:00 Labs: Laboratory Results - last 24 hr 07/06/23 11:00 WBC 11.5 H RBC 4.73 Hgb 13.5 Hct 40.1 MCV 84.8 MCH 28.5 MCHC 33.6 RDW 13.8 Plt Count 222 Neut % (Auto) 77.2 H Lymph % (Auto) 16.1 L Pershing % (Auto) 5.8 Eos % (Auto) 0.5 L Baso % (Auto) 0.4 Neut # (Auto) 8900 H Lymph # (Auto) 1900 Pershing # (Auto) 700 Eos # (Auto) 100 Baso # (Auto) 0 Blood Type O Positive Antibody Screen Negative Assessment and Plan Assessment and Plan Assessment and Plan narrative: G1 here for elective IOL at 39w2d. Dating based on LMP c/w 1st trimester US. complicated by father of child having congenital heart anomaly (bicuspid aortic valve). Unable to see MFM during , will need echo following delivery. GBS positive. Membranes swept in clinic 07/05. Contractions intermittent and ongoing for past week. Cervical exam in clinic /-2. -start antibiotics for GBS pos -pitocin for augmentation -plan for
[2023-07-06] MEDS: AMPICILLIN 1,000 MG in SODIUM CHLORIDE 0.9% 100 ML 200 MG IV ×2 (15:26→19:33)
--- NOTE | 2023-07-06 17:35 | PM.AN.REGBLK ---
Regional Block Pre-procedure Procedure: Continuous Lumbar Epidural for L&D Attending OB provider: Opal Breaux PMH/ROS narrative: Health 22yo female 39week. Hx: No personal or family history of anesthesia problems. ASA Class: II Labs: Hct 40.1 % (36-46) 07/06/23 11:00 Plt Count 222 X10^3/uL (150-400) 07/06/23 11:00 Medications: Current Medications Generic Name Dose Route Start Last Admin Trade Name Freq PRN Reason Stop Dose Admin Calcium Carbonate 1,000 mg 07/06/23 10:33 Calcium Carbonate 500 Mg Tab PO Q4HR PRN Dyspepsia Carboprost Tromethamine 250 mcg 07/06/23 10:33 Carboprost 250 Mcg/Ml Ampul IM Q90M PRN Bleeding Diphenhydramine HCl 25 mg 07/06/23 17:32 Diphenhydramine 50 Mg/Ml Vial IV Q10M PRN Pruritis Ephedrine Sulfate 5 mg 07/06/23 17:32 Ephedrine 50 Mg/Ml Vial IV Q5M PRN Blood pressure decrease more than 20% of baseline. Lactated Ringer's 1,000 mls @ 100 mls/hr 07/06/23 10:45 07/06/23 11:41 Lactated Ringers IV 100 mls/hr CONT JAYLEN Administration Lactated Ringer's 1,000 mls @ 100 mls/hr 07/06/23 10:45 Lactated Ringers IV CONT JAYLEN Tranexamic Acid 1,000 mg/ 100 mls @ 200 mls/hr 07/06/23 10:33 Sodium Chloride IV NOW PRN Bleeding Oxytocin/Lactated Ringer's 30 unit in 500 mls @ 200 mls/hr 07/06/23 10:33 Oxytocin Premix IV CONT PRN Bleeding Protocol Oxytocin/Lactated Ringer's 30 unit in 500 mls @ 1 mls/hr 07/06/23 11:15 07/06/23 11:41 Oxytocin Premix IV 1 milliunit/min TITRATE JAYLEN 1 mls/hr Administration Protocol 1 MILLIUNIT/MIN Ampicillin Sodium 1,000 mg/ 100 mls @ 200 mls/hr 07/06/23 15:30 07/06/23 15:26 Sodium Chloride IV 200 mls/hr Q4H JAYLEN Administration FENT 2MCG/ML BUPIV 0.125% EPI 200 mcg in 100 mls @ 6 mls/hr 07/06/23 17:22 Fentanyl/Bupiv/Ns 2mcg/Ml - 0.125% EPIDURAL CONT JAYLEN Lidocaine HCl 20 ml 07/06/23 10:33 Lidocaine 1% 20 Ml INJ INTRA-OP PRN Post Delivery Methylergonovine Maleate 0.2 mg 07/06/23 10:33 Methylergonovine 0.2 Mg Tablet PO Q6HR PRN Heavy Bleeding Methylergonovine Maleate 0.2 mg 07/06/23 10:33 Methylergonovine 0.2 Mg/Ml Vial IM NOW PRN Bleeding Misoprostol 25 mcg 07/06/23 10:45 Misoprostol 25 Mcg Tablet VAG Q4H JAYLEN Misoprostol 400 mcg 07/06/23 10:33 Misoprostol 200 Mcg Tablet SL NOW PRN Bleeding Nalbuphine HCl 2.5 mg 07/06/23 17:32 Nalbuphine 20 Mg/Ml Ampul IV Q10M PRN Pruritis Ondansetron HCl 4 mg 07/06/23 10:33 Ondansetron 4 Mg/2 Ml Inj IV Q4HR PRN Nausea And Vomiting Oxytocin 10 unit 07/06/23 10:33 Oxytocin 10 Unit/Ml Vial IM NOW PRN Bleeding Allergies: Allergies Allergy/AdvReac Type Severity Reaction Status Date / Time asparagus Allergy Severe Anaphylaxis Verified 07/05/23 14:04 Procedure Insertion date: 07/06/23 Insertion time: 17:06 Prep/Local: betadine x3 and 1% lidocaine Interspace: L3-L4 Patient position: sitting Needle: 18 gauge Natalya Loss of resistance with: saline (+ Air) EUGENIA at (cm): 7 Catheter placed at SKIN (cm): 14 Catheter in SPACE (cm): 7 Insertion: No CSF, No Blood, No Paresthesia with insertion, No Paresthesia with injection and No Test dose reaction Initial Medications TEST DOSE time: 17:08 BOLUS DOSE time: 17:09 BOLUS DOSE (mL): 7 BOLUS DOSE med: other (2% Lidocaine) Infusion INFUSION: 0.125% bupivacaine and with fentanyl 2 mcg/mL Initial rate (mL/hr): 6 Subsequent interventions: Rate 6ml/hr, PCEA 3ml, lockout 15min, 1hr max: 18ml. Post-procedure Anesthesia date START: 07/06/23 Anesthesia time START: 16:56 Anesthesia date END: 07/06/23 Anesthesia time END: 21:33 Post-procedure Anesthesia Assessment: Yes CV function: HR/BP stable, Yes Resp function: RR/sat/airway adequate, Yes Post-op hydration adequate, Yes Pain control adequate, Yes Nausea & vomiting absent, Yes Temperature > 36 C and Yes Mental status appropriate
--- NOTE | 2023-07-06 17:41 | PM.OBPNLAB ---
Date/Time Date Patient Seen: 07/06/23 Time Patient Seen: 15:00 Pain Control Pain control: tolerating well Pelvic Exam Dilation (cm): 4 Effacement (%): 80 station: -1 Amniotic membrane status: Intact Contractions Contractions on admission: irregular Monitor mode: External Pitocin rate (mU/min): 8 Contraction pattern: Regular Contraction intensity: Strong/Firm Status status: Category l Heart Rate Baseline: 145 Monitor Accelerations: Present Monitor Decelerations: Absent Monitor Variability: Moderate Assessment and Plan Assessment: induction ongoing Plan: continuous present management Comments: AROM at this time.
[2023-07-06] MEDS: FENT 2MCG/ML BUPIV 0.125% EPI 200 MCG/100 ML PLAST..BAG 6 MCG EPIDURAL (17:42)
--- NOTE | 2023-07-06 17:44 | PM.OBPNLAB ---
Date/Time Date Patient Seen: 07/06/23 Time Patient Seen: 17:30 Pain Control Pain control: epidural Comments: Epidural just placed Pelvic Exam Dilation (cm): 5.5 Effacement (%): 80 station: -1 Amniotic membrane status: Ruptured Contractions Monitor mode: External Contraction pattern: Regular Contraction intensity: Strong/Firm Status status: Category l Heart Rate Baseline: 140 Monitor Accelerations: Present Monitor Decelerations: Absent Monitor Variability: Moderate Assessment and Plan Assessment: induction ongoing Plan: continuous present management Comments: Comfortable with epidural, AROM at 1500. SVE now 5.5/90/-1. Continue present management. Anticipate vaginal delivery.
[2023-07-06] MEDS: CALCIUM CARBONATE 500 MG TAB 1000 MG PO (21:00)
--- NOTE | 2023-07-06 22:10 | PM.OBPRVD ---
Events: Labor Induction Labor & Delivery Delivery date: 07/06/23 Intrapartal Events: None Cervical ripening method: none Induction method: other (AROM) Delivery monitor: external FHT Route of delivery: Episiotomy description: None L&D Laceration Description: None Estimated blood loss (mL): 200 Anesthesia Type: Epidural Narrative: Patient was electively induced at 39w2d with pitocin and AROM. GBS positive with adequate antibiotics. Patient progressed to complete. She pushed effectively for 40 minutes before delivering over an intact perineum. There were no lacerations. Placenta delivered with fundal massage after delayed cord clamping for approximately 5 minutes. Pitocin bolus given. Minimal bleeding. Fundus firm. Plan for aftercare: Routine care
[2023-07-06] MEDS: IBUPROFEN 600 MG TABLET PO (22:31)
[2023-07-07] MEDS: IBUPROFEN 600 MG TABLET PO ×2 (05:08→12:19)
[2023-07-07] MEDS: ACETAMINOPHEN 325 MG TABLET 650 MG PO (07:26)
[2023-07-07] MEDS: LANOLIN OINT 7 GM 1 APPLIC TOP (07:27)
--- NOTE | 2023-07-07 09:22 | P.DS_ITS ---
Discharge Providers Provider Date of admission: 07/06/23 10:13 Discharge Date: 07/07/23 Primary care physician: Ly BOATENG Provider Consults: 07/07/23 22:07 Consult to [facility] Routine Comment: Discharge provider: Opal Breaux MD Summary Hospital Course Date Patient Seen: 07/07/23 Time Patient Seen: 08:45 Diagnoses: , term Hospital Course: G1 admitted for elective IOL at 39w2d. Dating based on LMP c/w 1st trimester US. complicated by father of child having congenital heart anomaly (bicuspid aortic valve). Unable to see MFM during , will need echo. GBS positive, adequate prophylaxis during labor. Augmented with pitocin and AROM. Received epidural. without complications. Normal recovery. Ongoing support needed. Peripartum Data Delivery Method: Natural Vaginal Laceration Description: None complications: none Status at Discharge Cognitive/behavioral status at discharge: oriented Functional status at discharge: independent ambulation Overall status at discharge: patient is back to baseline Time Spent with Patient Time attestation: Total time spent providing and/or coordinating discharge services: Time spent: Greater than 30 minutes Objective Labs 07/06/23 11:00 Labs: Laboratory Results - last 24 hr 07/06/23 11:00 WBC 11.5 H RBC 4.73 Hgb 13.5 Hct 40.1 MCV 84.8 MCH 28.5 MCHC 33.6 RDW 13.8 Plt Count 222 Neut % (Auto) 77.2 H Lymph % (Auto) 16.[address] [facility] % (Auto) 5.8 Eos % (Auto) 0.5 L Baso % (Auto) 0.4 Neut # (Auto) 8900 H Lymph # (Auto) 1900 [facility] # (Auto) 700 Eos # (Auto) 100 Baso # (Auto) 0 Blood Type O Positive Antibody Screen Negative Exam Narrative Exam Narrative: NAD, breathing easily. Fundus firm and below umbilicus. Discharge Plan Discharge Plan Patient Disposition: Home Discharge orders & Medications Prescriptions: New acetaminophen 325 mg Tablet 650 mg PO Q6HR PRN (Reason: Pain, Mild (1-3)) 7 Days Qty: 60 0RF ibuprofen 600 mg Tablet 600 mg PO Q6HR PRN (Reason: Pain, Mild (1-3)) 7 Days Qty: 60 0RF Continued vit-ferrous sulfat-FA 27 mg iron- 0.8 mg tablet PO Discontinued acyclovir 400 mg tablet 400 mg PO TID 35 Days Qty: 105 0RF Abrysvo 120 mcg/0.5 mL recon soln 0.5 ml IM ONCE Qty: 1 0RF Rx Instructions: as a single dose Follow up/Referrals: ProviderLy [Primary Care Provider] - Visit Report/Discharge Packet Stand Alone Forms: Patient Portal/API, Stroke Signs & Symptoms Discharge Data Primary Care Provider: Ly Palma
[2023-07-07 15:34] VITALS: BP 107/73; PULSE 76; RESP 16; TEMP 36.6
== END 2023-07-07 20:15 | disposition home or self-care (01) | DRG 806 ==
PROVIDERS: Admitting Provider Student in an Organized Health Care Education/Training Program; Referring Provider Student in an Organized Health Care Education/Training Program; Visit Provider Student in an Organized Health Care Education/Training Program
DX: O99.824 Streptococcus B carrier state complicating childbirth (principal); O98.32 Other infections with a predominantly sexual mode of transmission complicating childbirth; Z37.0 Single live birth; A60.9 Anogenital herpesviral infection, unspecified; Z3A.39 39 weeks gestation of pregnancy
CPT/HCPCS: 36415; 59050; 59400; 85025; 86850; 86900; 86901; G0379; J0290; J2590